=== PATIENT | male | born 1940 | race Caucasian/White ===

== ENCOUNTER 2019-02-26 13:57 | Observation (INO) | payer MEDICARE ==
[2019-02-26 14:48] LABS: ABSOLUTE NEUTROPHIL COUNT 4.46; BASO % 0.2 % (0-6); EOS % 3.5 % (0-6); HEMOGLOBIN 12.7 gm/dl (14.0-18.0); LYMPH % 17.8 % (16-45); MEAN CELL VOLUME 94.9 fl (81-97); MEAN CORPUSCULAR HEMOGLOBIN 30.9 pg (27-33); MEAN CORPUSCULAR HGB CONC 32.6 g/dl (32-36); MEAN PLATELET VOLUME 9.6 fl (7.4-10.4); MONO % 8.5 % (0-9); PLATELET COUNT 214 K/uL (130-400); RED BLOOD COUNT 4.11 M/uL (4.40-5.70); RED CELL DISTRIBUTION WIDTH 13.1 % (11.5-14.5); WHITE BLOOD COUNT W/O DIFF 6.4 K/uL (4.2-12.2)
[2019-02-26 15:08] LABS: BLOOD UREA NITROGEN 25 mg/dL (8-23); CREATININE 0.9 mg/dL (0.7-1.2); EST GLOMERULAR FILTRATION RATE > 60 mL/min; TOTAL PROTEIN 6.8 g/dL (6.6-8.7)
[2019-02-26 15:10] LABS: GLUCOSE,RANDOM 125 mg/dL (74-109)
[2019-02-26 15:13] LABS: ALB/GLOB RATIO 1.2 (1.1-1.8); ALBUMIN 3.7 g/dL (4.0-5.0); ALKALINE PHOSPHATASE 86 U/L (40-129); ALT/SGPT < 5 U/L (<41); AST/SGOT 24 U/L (10.0-50.0)
[2019-02-26 15:15] LABS: ACETAMINOPHEN < 5.0 ug/mL (10.0-30.0)
--- NOTE | 2019-02-26 15:16 | Emergency Department Record ---
History of Present Illness - General Chief Complaint: Confusion Stated Complaint: CONFUSION Time Seen by Provider: 02/26/19 14:00 Source: Patient, Family, EMS Mode of Arrival: EMS Limitations: No limitations - History of Present Illness Initial Comments: pt was brought in via ems because he was confused. he called 911 because he thought someone was in his house. he was having hallucinations and neighbors state that he is not usually confused. one of his meds was recently increased. he has parkinsons MD Complaint: Altered mental status, Confusion Onset/Timin -: Hour(s) Severity: Mild Consistency: Constant Context: Change in medication Associated Symptoms: Denies other symptoms - Camron Coma Scale Eye Response: (4) Open spontaneously Motor Response: (6) Obeys commands Verbal Response: (5) Oriented [place]ron Total: 15 - Related Data Home Medications Medication Instructions Recorded Confirmed Last Taken Atenolol [Tenormin] 25 mg PO DAILY 02/26/19 02/26/19 Unknown Carbidopa/Levodopa/Entacapone 1 each PO DAILY 02/26/19 02/26/19 Unknown [Alfnwilqf-Rsmesjsk-Damo 200 mg] Gabapentin [Neurontin] 100 mg PO TID 02/26/19 02/26/19 Unknown Terazosin HCl 2 mg PO DAILY 02/26/19 02/26/19 Unknown Allergies Allergy/AdvReac Type Severity Reaction Status Date / Time peanut AdvReac NAUSEA AND Verified 03/21/14 14:18 VOMITING Travel Screening - Travel/Exposure Within Last 30 Days Have you traveled within the last 30 days?: No Review of Systems Reviewed: No additional complaints except as noted below Constitutional: Reports: As per HPI. Denies: Chills, Fever, Malaise, Night sweats, Weakness, Weight change Eyes: Reports: As per HPI. Denies: Eye discharge, Eye pain, Photophobia, Vision change ENT: Reports: As per HPI. Denies: Congestion, Dental pain, Ear pain, Epistaxis, Hearing loss, Throat pain Respiratory: Reports: As per HPI. Denies: Cough, Dyspnea, Hemoptysis, Stridor, Wheezes Cardiovascular: Reports: As per HPI. Denies: Arrhythmia, Chest pain, Dyspnea on exertion, Edema, Murmurs, Orthopnea, Palpitations, Paroxysmal nocturnal dyspnea, Rheumatic Fever, Syncope Endocrine: Reports: As per HPI. Denies: Fatigue, Heat or cold intolerance, Polydipsia, Polyuria Gastrointestinal: Reports: As per HPI. Denies: Abdominal pain, Constipation, Diarrhea, Hematemesis, Hematochezia, Melena, Nausea, Vomiting Genitourinary: Reports: As per HPI. Denies: Dysuria, Frequency, Hematuria, Incontinence, Retention, Testicular pain, Testicular mass, Urgency Musculoskeletal: Reports: As per HPI. Denies: Arthralgia, Back pain, Gout, Joint swelling, Myalgia, Neck pain Skin: Reports: As per HPI. Denies: Bruising, Change in color, Change in hair/nails, Lesions, Pruritus, Rash Neurological: Reports: As per HPI, Abnormal gait, Confusion, Tremors. Denies: Headache, Numbness, Paresthesias, Seizure, Tingling, Vertigo, Weakness Psychiatric: Reports: As per HPI. Denies: Anxiety, Auditory hallucinations, Depression, Homicidal thoughts, Suicidal thoughts, Visual hallucinations Hematological/Lymphatic: Reports: As per HPI. Denies: Anemia, Blood Clots, Easy bleeding, Easy bruising, Swollen glands Past Medical History - SOCIAL HISTORY Smoking Status: Former smoker - RESPIRATORY Hx Respiratory Disorders: Yes Hx Sleep Apnea: Yes Hx of CPAP: No (has but does not use) - CARDIOVASCULAR Hx Cardio Disorders: Yes Hx Cardiac Cath: Yes (1969) Hx Hypertension: Yes - NEURO Hx Neuro Disorders: Yes Hx Parkinson's Disease: Yes (dx'd 2013) - GI Hx GI Disorders: Yes Hx Ulcer: Yes - Hx Genitourinary Disorders: Yes Hx Kidney Stones: Yes - ENDOCRINE Hx Endocrine Disorders: No - MUSCULOSKELETAL Hx Musculoskeletal Disorders: Yes Hx Arthritis: Yes - PSYCH Hx Psych Problems: Yes Hx Depression: Yes - HEMATOLOGY/ONCOLOGY Hx Hematology/Oncology Disorders: Yes Family Medical History Any Significant Family History?: Yes Family Hx Comment (NOT TO BE USED IN PLACE OF ITEMS BELOW): Son has Crohns disease Physical Exam - General General Appearance: Alert, Oriented x3, Cooperative, Mild distress - Head Head exam: Normal inspection - Eye Eye exam: Normal appearance, PERRL, EOMI Pupils: Normal accommodation - ENT ENT exam: Normal exam, Mucous membranes moist, Normal external ear exam, Normal orophraynx Ear exam: Normal external inspection. negative: External canal tenderness Nasal Exam: Normal inspection. negative: Discharge, Sinus tenderness Mouth exam: Normal external inspection, Tongue normal Teeth exam: Normal inspection. negative: Dental caries Throat exam: Normal inspection. negative: Tonsillar erythema, Tonsillar exudate - Neck Neck exam: Normal inspection, Full ROM. negative: Tenderness - Respiratory Respiratory exam: Normal lung sounds bilaterally. negative: Respiratory distress - Cardiovascular Cardiovascular Exam: Regular rate, Normal rhythm, Normal heart sounds - GI/Abdominal GI/Abdominal exam: Soft, Normal bowel sounds. negative: Tenderness - Rectal Rectal exam: Deferred - exam: Deferred - Extremities Extremities exam: Normal inspection, Full ROM, Normal capillary refill. negati ve: Tenderness - Back Back exam: Reports: Normal inspection, Full ROM. Denies: Muscle spasm, Rash noted, Tenderness - Neurological Neurological exam: Alert, CN II-XII intact, Oriented X3. negative: Normal gait - Psychiatric Psychiatric exam: Normal affect, Normal mood - Skin Skin exam: Dry, Intact, Normal color, Warm Course Vital Signs 02/26/19 13:58 Pulse Rate 61 Respiratory 20 Rate Blood Pressure 132/61 Pulse Ox 100 - Reevaluation(s) Reevaluation #1: 02/26/19 16:37 pts son went and checked meds and found that his dad had taken 3 extra days of meds Medical Decision Making - Lab Data Result diagrams: 02/26/19 13:30 02/26/19 13:30 Lab Results 02/26/19 02/26/19 Range/Units 13:30 13:30 WBC 6.4 (4.2-12.2) K/uL RBC 4.11 L (4.40-5.70) M/uL Hgb 12.7 L (14.0-18.0) gm/dl Hct 39.0 L (42.0-52.0) % MCV 94.9 (81-97) fl MCH 30.9 (27-33) pg MCHC 32.6 (32-36) g/dl RDW 13.1 (11.5-14.5) % Plt Count 214 (130-400) K/uL MPV 9.6 (7.4-10.4) fl Gran % 70.0 (47-80) % Lymphocytes % 17.8 (16-45) % Monocytes % 8.5 (0-9) % Eosinophils % 3.5 (0-6) % Basophils % 0.2 (0-6) % Absolute Neutrophils 4.46 Sodium 140 (136-145) mmol/L Potassium 3.5 (3.4-4.5) mmol/L Chloride 102 (98-107) mmol/L Carbon Dioxide 27.0 (22-29) mmol/L Anion Gap 11.0 (7-16) BUN 25 H (8-23) mg/dL Creatinine 0.9 (0.7-1.2) mg/dL Estimated GFR > 60 mL/min Random Glucose 125 H (74-109) mg/dL Calcium 9.4 (8.8-10.2) mg/dL Total Bilirubin 0.40 (0.2-1.0) mg/dL Total Protein 6.8 (6.6-8.7) g/dL Disposition Disposition: Admit Clinical Impression: Confusion Overdose Qualifiers: Encounter type: initial encounter Injury intent: accidental or unintentional Qualified Code(s): T50.901A - Poisoning by unspecified drugs, medicaments and biological substances, accidental (unintentional), initial encounter Disposition: Still a Patient at [facility] Decision to Admit: Admit from ER Decision to Admit Date: 02/26/19 Decision to Admit Time: 16:39 Forms: Patient Portal Access Quality - Quality Measures Quality Measures: N/A - Blood Pressure Screening Does Patient Have Any of the Following: Active Dx of HTN Blood Pressure Classification: Pre-Hypertensive BP Reading Systolic Measurement: 132 Diastolic Measurement: 61 Screening for High Blood Pressure: Patient Exclusion, Hx of HTN [[id number]]
[2019-02-26 16:18] LABS: URINE APPEARANCE CLEAR; URINE BILIRUBIN NEGATIVE (NEGATIVE); URINE BLOOD NEGATIVE (NEGATIVE); URINE COLOR ORANGE; URINE GLUCOSE (UA) NEGATIVE (NEGATIVE); URINE KETONE TRACE (NEGATIVE); URINE LEUKOCYTE ESTERASE NEGATIVE (NEGATIVE); URINE NITRITE NEGATIVE (NEGATIVE); URINE PROTEIN NEGATIVE (NEGATIVE); URINE UROBILINOGEN 0.2 E.U./dL (0.20 - 1.00)
[2019-02-26 16:25] LABS: AMPHETAMINE SCREEN URINE NOT DETECTED; BARBITURATE SCREEN URINE NOT DETECTED; BENZODIAZEPINE SCREEN URINE NOT DETECTED; COCAINE SCREEN URINE NOT DETECTED; METHADONE SCREEN URINE NOT DETECTED; OPIATE SCREEN URINE NOT DETECTED; PHENCYCLIDINE SCREEN URINE NOT DETECTED; THC SCREEN URINE NOT DETECTED; TRICYCLIC ANTIDEPRESSANT SCRN NOT DETECTED
[2019-02-26 16:26] LABS: METHAMPHETAMINE SCREEN NOT DETECTED; OXYCODONE SCREEN URINE NOT DETECTED; PROPOXYPHENE SCREEN URINE NOT DETECTED
[2019-02-26] MEDS ORDERED: 0.9 % SODIUM CHLORIDE 1,000 ML BAG IV ONE (16:27)
[2019-02-27] MEDS: ACETAMINOPHEN 500 MG TABLET PO PRN ×2 (00:23→09:46)
[2019-02-27] MEDS ORDERED: ATENOLOL 25 MG TABLET PO SCH (10:00)
--- NOTE | 2019-02-27 12:25 | History & Physical ---
History of Present Illness - Date of Service Date of Service for History & Physical: 02/27/19 - History of Present Illness Admitting Diagnosis: overdose, confusion History of Present Illness: 78 year old male patient presented to ED via EMS for evaluation of acute onset confusion. Patient lives alone and called 911 due to feeling that someone was in his home. Patient reported having visual hallucinations as well, denies a history of confusion at baseline. Patient states he recently saw PCP and his Carbodopa/Levodopa was increased. Upon further investigation from sons, it was found that patient had taken 4 days worth of all medications over the course of one day. Patient's current medications include Gabapentin 100mg daily, Duloxatine 30mg daily, Atenolol 25mg daily, Vit D2 1.25mg weekly, Terazosin 2mg qhs, and Carbodopa/Levodopa ER 50/200 1 tab at 0700, 1200, 1700, 2200. Past medical history includes HTN, Parkinson's, and Depression. PCP: Dr. Perry ED Course: HR 61, RR 20, BP 132/61, Pulse ox 100% CBC, CMP unremarkable UA: trace ketones Urine drug screen negative Head CT: no acute changes 02/27/19: Patient alert and oriented to self, place and situation. Tremors and confusion have improved from yesterday, patient still reports feeling "cloudy". Son at bedside, reports patient is near baseline for tremors. States he has n oted a decline in patient's mentation over the past 2-4 months. Patient currently lives home alone, sons help organize medications. Patient has no complaints of pain, nausea, shortness of breath, chest pain, or diarrhea today. Travel Screening - Travel/Exposure Within Last 30 Days Have you traveled within the last 30 days?: No - Travel/Exposure Within Last Year Have you traveled outside the [place] in the last year?: No - Additonal Travel Details Have you been exposed to anyone with a communicable illness?: No - Travel Symptoms Symptom Screening: None Review of Systems Reviewed: No additional complaints except as noted below Constitutional: Reports: As per HPI. Denies: Chills, Fever, Malaise, Night sweats, Weakness, Weight change Eyes: Reports: As per HPI. Denies: Eye discharge, Eye pain, Photophobia, Vision change ENT: Reports: As per HPI. Denies: Congestion, Dental pain, Ear pain, Epistaxis, Hearing loss, Throat pain Respiratory: Reports: As per HPI. Denies: Cough, Dyspnea, Hemoptysis, Stridor, Wheezes Cardiovascular: Reports: As per HPI. Denies: Arrhythmia, Chest pain, Dyspnea on exertion, Edema, Murmurs, Orthopnea, Palpitations, Paroxysmal nocturnal dyspnea, Rheumatic Fever, Syncope Endocrine: Reports: As per HPI. Denies: Fatigue, Heat or cold intolerance, Polydipsia, Polyuria Gastrointestinal: Reports: As per HPI. Denies: Abdominal pain, Constipation, Diarrhea, Hematemesis, Hematochezia, Melena, Nausea, Vomiting Genitourinary: Reports: As per HPI. Denies: Dysuria, Frequency, Hematuria, Incontinence, Retention, Testicular pain, Testicular mass, Urgency Musculoskeletal: Reports: As per HPI. Denies: Arthralgia, Back pain, Gout, Joint swelling, Myalgia, Neck pain Skin: Reports: As per HPI. Denies: Bruising, Change in color, Change in hair/nails, Lesions, Pruritus, Rash Neurological: Reports: As per HPI, Abnormal gait, Confusion, Tremors. Denies: Headache, Numbness, Paresthesias, Seizure, Tingling, Vertigo, Weakness Psychiatric: Reports: As per HPI. Denies: Anxiety, Auditory hallucinations, Depression, Homicidal thoughts, Suicidal thoughts, Visual hallucinations Hematological/Lymphatic: Reports: As per HPI. Denies: Anemia, Blood Clots, Easy bleeding, Easy bruising, Swollen glands Past Medical History - SOCIAL HISTORY Smoking Status: Former smoker Alcohol Use: None Drug Use: None - RESPIRATORY Hx Respiratory Disorders: Yes Hx Sleep Apnea: Yes Hx of CPAP: No (has but does not use) - CARDIOVASCULAR Hx Cardio Disorders: Yes Hx Cardiac Cath: Yes (1969) Hx Hypertension: Yes - NEURO Hx Neuro Disorders: Yes Hx Parkinson's Disease: Yes (dx'd 2013) - GI Hx GI Disorders: Yes Hx Ulcer: Yes - Hx Genitourinary Disorders: Yes Hx Kidney Stones: Yes - ENDOCRINE Hx Endocrine Disorders: No Hx Diabetes: No Hx Thyroid Disease: No - MUSCULOSKELETAL Hx Musculoskeletal Disorders: Yes Hx Arthritis: Yes - PSYCH Hx Psych Problems: Yes Hx Depression: Yes - HEMATOLOGY/ONCOLOGY Hx Hematology/Oncology Disorders: No Family Medical History Any Significant Family History?: Yes Family Hx Comment (NOT TO BE USED IN PLACE OF ITEMS BELOW): Son has Crohns disease H&P Meds/Allergies - Allergies Allergies: Allergies Allergy/AdvReac Type Severity Reaction Status Date / Time peanut AdvReac NAUSEA AND Verified 03/21/14 14:18 VOMITING - Home Medications Home Medications Medication Instructions Recorded Confirmed Last Taken Atenolol [Tenormin] 25 mg PO DAILY 02/26/19 02/26/19 Unknown Carbidopa/Levodopa/Entacapone 1 each PO DAILY 02/26/19 02/26/19 Unknown [Irvlnxqkv-Jirgvxfp-Mvgi 200 mg] Gabapentin [Neurontin] 100 mg PO TID 02/26/19 02/26/19 Unknown Terazosin HCl 2 mg PO DAILY 02/26/19 02/26/19 Unknown - Active Medications Active Medications: Current Medications Acetaminophen (Tylenol 500mg Tab) 1,000 mg PO Q6H PRN PRN Reason: PAIN - MILD(1-4)/FEVER Last Admin: 02/27/19 09:46 Dose: 1,000 mg Documented by: Atenolol (Tenormin) 25 mg PO DAILY TALHA Last Admin: 02/27/19 09:46 Dose: 25 mg Documented by: Physical Exam - Vital Signs Vital Signs: Vital Signs - Last 24 Hrs Temp Pulse Pulse Pulse Pulse Resp BP 02/27/19 09:00 84 16 02/27/19 08:06 98.0 F 84 16 02/27/19 06:30 97.4 F L 82 18 02/26/19 21:56 99.1 F 86 18 02/26/19 19:08 83 16 02/26/19 18:00 97.9 F 83 16 02/26/19 16:19 67 18 02/26/19 13:58 61 20 132/61 BP BP Pulse Ox 02/27/19 09:00 02/27/19 08:06 192/99 94 L 02/27/19 06:30 193/78 95 02/26/19 21:56 159/87 96 02/26/19 19:08 02/26/19 18:00 179/83 100 02/26/19 16:19 166/75 98 02/26/19 13:58 100 - General General Appearance: Alert, Oriented x3 (not to time), Cooperative, No acute distress Limitations: No limitations - Head Head exam: Normal inspection - Eye Eye exam: Normal appearance, PERRL, EOMI Pupils: Normal accommodation - ENT ENT exam: Normal exam, Mucous membranes moist, Normal external ear exam, Normal orophraynx Ear exam: Normal external inspection. negative: External canal tenderness Nasal Exam: Normal inspection. negative: Discharge, Sinus tenderness Mouth exam: Normal external inspection, Tongue normal Teeth exam: Normal inspection. negative: Dental caries Throat exam: Normal inspection. negative: Tonsillar erythema, Tonsillar exudate - Neck Neck exam: Normal inspection, Full ROM. negative: Tenderness - Respiratory Respiratory exam: Normal lung sounds bilaterally. negative: Respiratory distress - Cardiovascular Cardiovascular Exam: Regular rate, Normal rhythm, Normal heart sounds Peripheral Pulses: 2+: Radial (R), Radial (L), Dorsalis Pedis (R), Dorsalis Pedis (L) - GI/Abdominal GI/Abdominal exam: Soft, Normal bowel sounds. negative: Tenderness - Rectal Rectal exam: Deferred - exam: Deferred - Extremities Extremities exam: Normal inspection, Full ROM, Normal capillary refill. negative: Tenderness - Back Back exam: Reports: Normal inspection, Full ROM. Denies: Muscle spasm, Rash noted, Tenderness - Neurological Neurological exam: Abnormal gait (shuffling), Alert, Oriented X3, Other (tremors). negative: Normal gait - Psychiatric Psychiatric exam: Normal affect, Normal mood - Skin Skin exam: Dry, Intact, Normal color, Warm Results - Labs Result Diagrams: 02/26/19 13:30 02/26/19 13:30 Labs Last 24 Hours: Laboratory Results - last 24 hr 02/26/19 02/26/19 02/26/19 13:30 13:30 Unknown WBC 6.4 RBC 4.11 L Hgb 12.7 L Hct 39.0 L MCV 94.9 MCH 30.9 MCHC 32.6 RDW 13.1 Plt Count 214 MPV 9.6 Gran % 70.0 Lymphocytes % 17.8 Monocytes % 8.5 Eosinophils % 3.5 Basophils % 0.2 Absolute Neutrophils 4.46 Sodium 140 Potassium 3.5 Chloride 102 Carbon Dioxide 27.0 Anion Gap 11.0 BUN 25 H Creatinine 0.9 Estimated GFR > 60 Random Glucose 125 H Calcium 9.4 Total Bilirubin 0.40 AST 24 ALT < 5 Alkaline Phosphatase 86 Total Protein 6.8 Albumin 3.7 L Globulin 3.1 Albumin/Globulin Ratio 1.2 Urine Color [place] H Urine Appearance Clear Urine pH 5.5 Ur Specific [place] >= 1.030 Urine Protein Negative Urine Glucose (UA) Negative Urine Ketones Trace H Urine Blood Negative Urine Nitrite Negative Urine Bilirubin Negative Urine Urobilinogen 0.2 Ur Leukocyte Esterase Negative Urine Opiates Screen Ur Oxycodone Screen Urine Methadone Screen Ur Propoxyphene Screen Acetaminophen < 5.0 L Ur Barbituates Screen Ur Tricyclics Screen Ur Phencyclidine Scrn Ur Amphetamine Screen U Methamphetamines Scrn U Benzodiazepines Scrn Urine Cocaine Screen Urine Cannabis Screen 02/26/19 Unknown WBC RBC Hgb Hct MCV MCH MCHC RDW Plt Count MPV Gran % Lymphocytes % Monocytes % Eosinophils % Basophils % Absolute Neutrophils Sodium Potassium Chloride Carbon Dioxide Anion Gap BUN Creatinine Estimated GFR Random Glucose Calcium Total Bilirubin AST ALT Alkaline Phosphatase Total Protein Albumin Globulin Albumin/Globulin Ratio Urine Color Urine Appearance Urine pH Ur Specific [place] Urine Protein Urine Glucose (UA) Urine Ketones Urine Blood Urine Nitrite Urine Bilirubin Urine Urobilinogen Ur Leukocyte Esterase Urine Opiates Screen Not detected Ur Oxycodone Screen Not detected Urine Methadone Screen Not detected Ur Propoxyphene Screen Not detected Acetaminophen Ur Barbituates Screen Not detected Ur Tricyclics Screen Not detected Ur Phencyclidine Scrn Not detected Ur Amphetamine Screen Not detected U Methamphetamines Scrn Not detected U Benzodiazepines Scrn Not detected Urine Cocaine Screen Not detected Urine Cannabis Screen Not detected VTE H&P Assessment - Risk for VTE Risk for VTE: Yes Risk Level: Moderate Risk Assessment Date: 02/27/19 Risk Assessment Time: 12:26 VTE Orders Placed or Will Be Placed: Yes Plan - Detailed Diagnosis and Plan (1) Confusion Current Visit: Yes Status: Acute Base Code: R41.0 - DISORIENTATION, UNSPECIFIED Comment: 02/27/19: -Acute confusion noted from baseline -Oriented to self, place, and situation today -Head CT: no acute changes -UA, CBC, and CMP unremarkable -Confusion likely due to overdose of Carbedopa/Levodopa (2) Overdose Current Visit: Yes Status: Acute Qualifiers: Encounter type: initial encounter Injury intent: accidental or unintentional Qualified Code(s): T50.901A - Poisoning by unspecified drugs, medicaments and biological substances, accidental (unintentional), initial encounter Base Code: T50.901A - POISONING BY UNSP DRUG/MEDS/BIOL SUBST, ACCIDENTAL, INIT Comment: 02/27/19: -Patient has take 3-4 days worth of medications on Thursday -Holding Duloxatine and Carbodopa/Levodopa until 02/28 (3) DVT prophylaxis Current Visit: Yes Status: Acute Base Code: Z29.9 - ENCOUNTER FOR PROPHYLACTIC MEASURES, UNSPECIFIED Comment: 02/27/19: -High risk due to age and hospitalization -Encouraged ambulation within the room -Lovenox 40mg SQ daily (4) DNR (do not resuscitate) Current Visit: Yes Status: Acute Base Code: Z66 - DO NOT RESUSCITATE Comment: 02/27/19: -Patient DNR
--- NOTE | 2019-02-27 12:47 | CT SCAN REPORT ---
DATE: 02/26/2019. EXAM: CT SCAN OF THE HEAD. HISTORY: THE PATIENT HAS A HISTORY OF CONFUSION AND A FALL. TECHNIQUE: Serial axial CT scan of the head was performed at 2.5 mm intervals from the base of the skull to the apex without the use of intravenous contrast. Sagittal and coronal reconstruction views were provided. COMPARISON: No comparison CTs are available. FINDINGS: The ventricles, cisterns, and sulci are within normal limits for size, shape, and attenuation. There is no mass or mass effect. There are mild to moderate periventricular and subcortical white matter chronic small-vessel ischemic changes. There is no CT evidence of intra- or extra-axial fluid collection to suggest bleeding. Bone windows demonstrate no CT evidence of a fracture or dislocation of the skull. The paranasal sinuses are unremarkable. IMPRESSION: A MILD AMOUNT OF PERIVENTRICULAR AND SUBCORTICAL WHITE MATTER CHRONIC SMALL- VESSEL ISCHEMIC CHANGES IS IDENTIFIED WITHOUT CT EVIDENCE OF AN ACUTE INTRACRANIAL PROCESS. Job Number: [id number] MTDD
[2019-02-27] MEDS: GABAPENTIN 100 MG CAPSULE PO SCH (21:25)
[2019-02-27] MEDS: ATENOLOL 25 MG TABLET PO SCH (21:25)
[2019-02-27] MEDS: TERAZOSIN HCL 1 MG CAPSULE PO SCH (21:25)
[2019-02-27] MEDS ORDERED: NYSTATIN 15 GM POWDER TP ONE (21:32)
[2019-02-28] MEDS: CARBIDOPA/LEVODOPA 25MG/100MG TABLET PO SCH ×5 (06:22→22:18)
[2019-02-28] MEDS: ATENOLOL 25 MG TABLET PO SCH ×2 (09:27→22:17)
[2019-02-28] MEDS: DULOXETINE HCL 30 MG CAPSULE.DR PO SCH (09:27)
[2019-02-28] MEDS: ENOXAPARIN 40 MG/0.4 ML SYR SQ SCH (09:27)
[2019-02-28] MEDS ORDERED: NYSTATIN 15 GM POWDER TP PRN (09:41)
--- NOTE | 2019-02-28 12:46 | Rehab Evaluation ---
Patient Information - Patient Information Diagnosis: overdose, confusion Ordered Treatment: OT Evaluate and Treat Status: Initial Evaluation Surgery: No Past Medical/Surgical Hx: PAST MEDICAL/SURGICAL HISTORY Past Surgical History bilat hernia repair, heart cath (), colonoscopy PMH - Respiratory Hx Respiratory Disorders Yes Hx Sleep Apnea Yes Hx of CPAP No: has but does not use PMH - Cardiovascular Hx Cardiovascular Disorders Yes Hx Cardiac Catheterization Yes: 1970 Hx Hypertension Yes PMH - Neuro Hx Neurological Disorders Yes Hx Parkinson's Disease Yes: dx'd 2013 PMH - GI Hx Gastrointestinal Disorders Yes Hx Ulcer Yes PMH - Hx Genitourinary Disorders Yes Hx Kidney Stones Yes PMH - Endocrine Hx Endocrine Disorders No Hx Diabetes No Hx Thyroid Disease No PMH - Musculoskeletal Hx Musculoskeletal Disorders Yes Hx Arthritis Yes PMH - Psych Hx Psychiatric Problems Yes Hx Depression Yes PMH - Hematology/Oncology Hx Hematology/Oncology No Disorders Premorbid Status: Detail (Pt lives alone in a 1 story house, no basement. He has 2 steps with 1 railing at the entrance. He has a tub/shower combination, no grab bar. He does have a tub bench but he typically stands to shower. He has a standard height toilet, no grab bar. He was Ind with all self cares, home mgmt, meal prep and laundry tasks. He has a 2 wheeled walker but was ambulating without an assistive device.) Social History: Detail (Supportive son who was present for evaluation.) Precautions: [place], Fall - Time With Patient Total Time Spent With Patient (Min): 40 Treatment Procedures: Detail (OT eval low complexity) Subjective Information - Subjective Information Per Patient Objective Data - Pain Pain Present: No - Mental Status Patient Orientation: Oriented x3 (Pt oriented to self, location, month, year and birthday. He stated his age as "88". Pt required minimal verbal cueing at times.) - Visual Perception Appears within normal limits for therapeutic activities (Pt wears glasses at all times.) - ROM Within normal limits (Vivek UE AROM WNL) - Strength/Tone Within normal limits (Vivek UE strength 4+/5 throughout) - Coordination Deficit (Pt presents with significant UE tremors, right worse than left.) - Transfers Needs Assist (Min assist and verbal cues for sit to stand from recliner chair and toilet heights.) - Balance Balance Sitting: Good Balance Standing: Fair - Sensation Intact - Gait Detail (Pt ambulated in room with 2 wheeled walker and CG assist.) - ADL's/IADL's Detail (Pt able to don hospital pants with mod assist to start over feet and max assist to cloth covered helmet puller hips and tie. He was able to complete toileting with min assist for sit to stand and to reach toilet paper. He completed oral hygiene with min assist to close toothpaste due to significant tremors. Pt was fatigued after self care tasks.) Therapy Assessment - Therapy Assessment Detail (Pt presents with significant vivek UE tremors, decreased Ind with self care tasks and decreased endurance needed for safe and Ind ADLs/IADLs.) Problem List - Problem List Occupational Therapy Problem List: Detail (1. Decreased UE coordination due to significant tremors. 2. Decreased endurance needed for safe and Ind self cares and IADLs. 3. Decreased Ind with self care tasks.) Goals - Goals Occupational Therapy Goals: 1. Pt will demonstrate functional UE coordination to allow Ind with self cares and IADL tasks. 2. Pt will demonstrate improved endurance to allow Ind with light meal prep activities. 3. Pt will be safe and Ind with total body dressing, grooming and hygiene tasks. Prognosis - Prognosis Good Plan - Plan Occupational Therapy Plan: OT 2-4 days per week to address self cares, IADLs, UE function and overall endurance. Recommend short IP rehab stay to maximize safety and Ind to allow return home.
--- NOTE | 2019-02-28 12:47 | Rehab Evaluation ---
Patient Information - Patient Information Diagnosis: confusion Ordered Treatment: PT Evaluate and Treat Status: Initial Evaluation History: Detail (Patient presented in ED on 02/26/19 due to increased confusion and hallucinations. Patient's son discovered patient had taken 3 extra days of medications.) Past Medical/Surgical Hx: PAST MEDICAL/SURGICAL HISTORY Past Surgical History bilat hernia repair, heart cath (), colonoscopy PMH - Respiratory Hx Respiratory Disorders Yes Hx Sleep Apnea Yes Hx of CPAP No: has but does not use PMH - Cardiovascular Hx Cardiovascular Disorders Yes Hx Cardiac Catheterization Yes: 1969 Hx Hypertension Yes PMH - Neuro Hx Neurological Disorders Yes Hx Parkinson's Disease Yes: dx'd 2013 PMH - GI Hx Gastrointestinal Disorders Yes Hx Ulcer Yes PMH - Hx Genitourinary Disorders Yes Hx Kidney Stones Yes PMH - Endocrine Hx Endocrine Disorders No Hx Diabetes No Hx Thyroid Disease No PMH - Musculoskeletal Hx Musculoskeletal Disorders Yes Hx Arthritis Yes PMH - Psych Hx Psychiatric Problems Yes Hx Depression Yes PMH - Hematology/Oncology Hx Hematology/Oncology No Disorders Premorbid Status: Detail (Prior to admission the patient was ambulatory without device. The patient stated he was independent with ADL's, laundry, household tasks, meals. The patient had assistance with driving and lawn care.) Social History: Detail (The patient lives alone in a one story house with 2 steps at the enterance and one handrail. The bathroom is equipped with : tub/shower combination, shower seat, standard height toilet. There were no grab bars in bathroom. The patient has a front wheeled walker.) Precautions: [place], Fall - Time With Patient Total Time Spent With Patient (Min): 30 Treatment Procedures: Detail (Initial Evaluation. Low complexity.) Subjective Information - Subjective Information Per Patient (The patient had no pain complaints but did state his UE tremoring was increased.) Objective Data - Mental Status Patient Orientation: Oriented x3 (The patient knew his birthdate, current year and month but not his age.) - ROM Not within normal limits (The patient's R knee extension was minimally limited in AROM. PROM was WNL. All other AROM was WNL.) - Strength/Tone Not within normal limits (The patient's strength was influenced by increased muscle tone in LE's and trunk, however isolated movements were present. Using the William's scale LE tone was rated as 3 ( considerable increase in tone;passive movement difficult). R LE tone was slightly increased compared to L. Trunk tone was level 4 on William's (Limb rigid in Trunk flexion).) - Bed Mobility Needs Assist (Not evaluated.) - Transfers Needs Assist (Minimal PA of 1 with sit to stand, verbal cues to push up from chair and CG with stand to sit with verbal cues to reach back to chair. Toilet transfer was completed independently with grab bar and verbal cues for technique.) - Balance Balance Standing: Fair (Functional patient was able to stand with one handed support and complete ADL's. Patient's balance was not assessed using Objective Balance Tool.) - Gait Detail (The patient ambulated with CG of 1 using front wheeled walker a distance of 55 feet x 1. The gait pattern was charecterized by initially shuffling gait pattern with increased R hip adduction during swing phase. Stride length increased as activity progressed and R hip adduction decreased. Flexed posturing of neck and trunk was noted throughout gait as well as hand tremoring. The patient did not have heel to toe rate transfer.) Therapy Assessment - Therapy Assessment Detail (The patient required assistance and verbal cueing for transfers and CG for ambulation. Feel the patient would benefit from subacute rehab to return to previous functional level which was living alone without assistance.) Problem List - Problem List Physical Therapy Problem List: Detail (1) Assistance with transfers 2) Decreased ability to complete prolonged physical activity 3) Increased tone of LE's and Trunk 4) Decreased LE and Trunk ROM due to increased 5) Numerous gait deviations increasing fall risk) Goals - Goals Physical Therapy Goals: 1) The patient will ambulate 75 to 100 feet with appropriate assistive independently. 2) Evaluate bed mobility. 3)Evaluate balance using objective balance test. 4) The patient will ambulate on stairs with use of one railing with supervision for safety. 5) Independent with transfers. Plan - Plan Physical Therapy Plan: PT 1-2 times a day for gait and transfer training, neuromuscular re-education, balance exercises, bed mobility,tone reduction techniques, manual therapy techniques to improve trunk mobility.
--- NOTE | 2019-02-28 17:12 | Physician Progress Note ---
Subjective - Date Date of Physician Progress Note: 02/28/19 - Subjective Subjective Comment: 02/28/19: Patient oriented x 3, back to baseline mentation at this time. Tremors have also improved and patient reports being to baseline. PT/OT to evaluate due to continued weakness and deconditioning. Case management to help with discharge planning. Objective - Vital Signs Vital Signs: Vital Signs - Last 24 Hrs Temp Pulse Resp BP BP Pulse Ox 02/28/19 13:55 97.8 F 73 16 130/49 95 02/28/19 08:09 20 02/28/19 08:00 98.2 F 84 16 155/68 94 L 02/28/19 05:57 97.7 F 83 16 173/87 97 02/28/19 02:00 98.1 F 76 16 187/85 97 02/27/19 21:00 16 02/27/19 20:00 98.2 F 82 16 185/92 97 - General General Appearance: Alert, Oriented x3 (not to time, at baseline), Cooperative, No acute distress Limitations: No limitations - Head Head exam: Normal inspection - Eye Eye exam: Normal appearance, PERRL, EOMI Pupils: Normal accommodation - ENT ENT exam: Normal exam, Mucous membranes moist Ear exam: Normal external inspection. negative: External canal tenderness Nasal Exam: Normal inspection. negative: Discharge, Sinus tenderness Mouth exam: Normal external inspection Teeth exam: Normal inspection. negative: Dental caries Throat exam: Normal inspection. negative: Tonsillar erythema, Tonsillar exudate - Neck Neck exam: Normal inspection, Full ROM. negative: Tenderness - Respiratory Respiratory exam: Normal lung sounds bilaterally. negative: Respiratory distress - Cardiovascular Cardiovascular Exam: Regular rate, Normal rhythm, Normal heart sounds Peripheral Pulses: 2+: Radial (R), Radial (L), Dorsalis Pedis (R), Dorsalis Pedis (L) - GI/Abdominal GI/Abdominal exam: Soft, Normal bowel sounds. negative: Tenderness - Rectal Rectal exam: Deferred - exam: Deferred - Extremities Extremities exam: Normal inspection, Full ROM, Normal capillary refill. negative: Tenderness - Back Back exam: Reports: Normal inspection, Full ROM. Denies: Muscle spasm, Rash noted, Tenderness - Neurological Neurological exam: Abnormal gait (shuffling), Alert, Oriented X3, Other (tremors). negative: Normal gait - Psychiatric Psychiatric exam: Normal affect, Normal mood - Skin Skin exam: Dry, Intact, Normal color, Warm Assessment and Plan - Assessment and Plan (1) Confusion Current Visit: Yes Status: Acute Base Code: R41.0 - DISORIENTATION, UNSPECIFIED Comment: 02/28/19: -Head CT: no acute changes -UA, CBC, and CMP unremarkable -Confusion likely due to overdose of Carbedopa/Levodopa -Patient's confusion has resolved. Oriented to baseline mentation (2) Overdose Current Visit: Yes Status: Acute Qualifiers: Encounter type: initial encounter Injury intent: accidental or unintentional Qualified Code(s): T50.901A - Poisoning by unspecified drugs, medicaments and biological substances, accidental (unintentional), initial en counter Base Code: T50.901A - POISONING BY UNSP DRUG/MEDS/BIOL SUBST, ACCIDENTAL, INIT Comment: 02/28/19: -Familiy reports that patient took 3-4 days worth of all medications on Thursday -Holding Duloxatine and Carbodopa/Levodopa until 02/28 (3) Parkinson disease Current Visit: Yes Status: Acute Base Code: G20 - PARKINSON'S DISEASE Co mment: 02/28/19: -Progressing parkinson's with progressively worsening tremors -Sinemet increased by PCP recently -Taking Sinemet 50/200 QID (4) Physical deconditioning Current Visit: Yes Status: Acute Base Code: R53.81 - OTHER MALAISE Comment: 02/28/19: -Patient requiring assist up to bathroom, out of bed, and with ambulation in halls -Uses walker, lives home alone -PT/OT to evaluate -Will likely need PT/OT on dc (5) Hypertension Current Visit: Yes Status: Acute Base Code: I10 - ESSENTIAL (PRIMARY) HYPERTENSION Comment: 02/28/19: -History of HTN, currently taking Atenolol 25mg daily -Increased Atenolol to 25mg BID due to continued hypertensive readings (6) DVT prophylaxis Current Visit: Yes Status: Acute Base Code: Z29.9 - ENCOUNTER FOR P ROPHYLACTIC MEASURES, UNSPECIFIED Comment: 02/28/19: -High risk due to age and hospitalization -Encouraged ambulation within the room -Lovenox 40mg SQ daily (7) DNR (do not resuscitate) Current Visit: Yes Status: Acute Base Code: Z66 - DO NOT RESUSCITATE Comment: 02/28/19: -Patient DNR Results - Labs Result Diagrams: 02/26/19 13:30 02/26/19 13:30 DVT/PE Assessment - Risk for VTE Risk for VTE: No Risk Level: Moderate Risk Assessment Date: 02/27/19 Risk Assessment Time: 12:26 VTE Orders Placed or Will Be Placed: Yes - Active Medicaitons Current Medications: Current Medications Acetaminophen (Tylenol 500mg Tab) 1,000 mg PO Q6H PRN PRN Reason: PAIN - MILD(1-4)/FEVER Last Admin: 02/27/19 09:46 Dose: 1,000 mg Documented by: Atenolol (Tenormin) 25 mg PO BID [facility] Last Admin: 02/28/19 09:27 Dose: 25 mg Documented by: Carbidopa/Levodopa (Sinemet) 2 each PO QIDACHS [facility] Last Admin: 02/28/19 17:10 Dose: 2 each Documented by: Duloxetine HCl (Cymbalta) 30 mg PO DAILY [facility] Last Admin: 02/28/19 09:27 Dose: 30 mg Documented by: Enoxaparin Sodium (Lovenox) 40 mg SQ DAILY [facility] Last Admin: 02/28/19 09:27 Dose: 40 mg Documented by: Gabapentin (Neurontin) 100 mg PO QHS [facility] Last Admin: 02/27/19 21:25 Dose: 100 mg Documented by: Nystatin (Nystop) 15 gm TP ASDIR PRN PRN Reason: RASH Terazosin HCl (Hytrin) 2 mg PO QHS [facility] Last Admin: 02/27/19 21:25 Dose: 2 mg Documented by: AMI Plan - Labs Result Diagrams: 02/26/19 13:30 02/26/19 13:30
[2019-02-28] MEDS: GABAPENTIN 100 MG CAPSULE PO SCH (22:17)
[2019-02-28] MEDS: TERAZOSIN HCL 1 MG CAPSULE PO SCH (22:18)
[2019-03-01] MEDS: ACETAMINOPHEN 500 MG TABLET PO PRN (05:01)
[2019-03-01 06:43] LABS: ABSOLUTE NEUTROPHIL COUNT 3.77; HEMATOCRIT 36.7 % (42.0-52.0); HEMOGLOBIN 12.3 gm/dl (14.0-18.0); MEAN CELL VOLUME 93.9 fl (81-97); MEAN CORPUSCULAR HGB CONC 33.5 g/dl (32-36); MEAN PLATELET VOLUME 9.2 fl (7.4-10.4); PLATELET COUNT 197 K/uL (130-400); RED BLOOD COUNT 3.91 M/uL (4.40-5.70); RED CELL DISTRIBUTION WIDTH 12.8 % (11.5-14.5); WHITE BLOOD COUNT W/O DIFF 5.5 K/uL (4.2-12.2)
[2019-03-01 06:48] LABS: MEAN CORPUSCULAR HEMOGLOBIN 31.4 pg (27-33)
[2019-03-01 06:49] LABS: BASO % 0.4 % (0-6); EOS % 4.9 % (0-6); GRAN % 68.6 % (47-80); LYMPH % 13.7 % (16-45); MONO % 12.4 % (0-9)
[2019-03-01 07:00] LABS: BLOOD UREA NITROGEN 18 mg/dL (8-23); CREATININE 0.7 mg/dL (0.7-1.2); EST GLOMERULAR FILTRATION RATE > 60 mL/min; GLUCOSE,RANDOM 102 mg/dL (74-109)
[2019-03-01] MEDS: CARBIDOPA/LEVODOPA 25MG/100MG TABLET PO SCH ×2 (07:21→12:52)
--- NOTE | 2019-03-01 09:12 | Discharge Summary ---
Providers Discharge Summary Date: 03/01/19 Date of admission: 02/26/19 17:26 Attending physician: SAPPHIRE ZHOU Primary care physician: Rodrick Perry Consults: Consult Orders 02/26/19 18:47 Consult - Case Management NOW Comment: Reason For Exam: discharge planning Physical Exam - Vital Signs Vital Signs: Vital Signs - Last 24 Hrs Temp Pulse Resp BP BP Pulse Ox 03/01/19 08:00 97.7 F 60 16 159/72 99 02/28/19 21:38 98.2 F 63 18 133/54 98 02/28/19 13:55 97.8 F 73 16 130/49 95 - General General Appearance: Alert, Oriented x3 (not to time, at baseline), Cooperative, No acute distress Limitations: No limitations - Head Head exam: Normal inspection - Eye Eye exam: Normal appearance, PERRL, EOMI Pupils: Normal accommodation - ENT ENT exam: Normal exam, Mucous membranes moist Ear exam: Normal external inspection. negative: External canal tenderness Nasal Exam: Normal inspection. negative: Discharge, Sinus tenderness Mouth exam: Normal external inspection Teeth exam: Normal inspection. negative: Dental caries Throat exam: Normal inspection. negative: Tonsillar erythema, Tonsillar exudate - Neck Neck exam: Normal inspection, Full ROM. negative: Tenderness - Respiratory Respiratory exam: Normal lung sounds bilaterally. negative: Respiratory distress - Cardiovascular Cardiovascular Exam: Regular rate, Normal rhythm, Normal heart sounds Peripheral Pulses: 2+: Radial (R), Radial (L), Dorsalis Pedis (R), Dorsalis Pedis (L) - GI/Abdominal GI/Abdominal exam: Soft, Normal bowel sounds. negative: Tenderness - Rectal Rectal exam: Deferred - exam: Deferred - Extremities Extremities exam: Normal inspection, Full ROM, Normal capillary refill. negative: Tenderness - Back Back exam: Reports: Normal inspection, Full ROM. Denies: Muscle spasm, Rash noted, Tenderness - Neurological Neurological exam: Abnormal gait (shuffling), Alert, Oriented X3, Other (tremors). negative: Normal gait - Psychiatric Psychiatric exam: Normal affect, Normal mood - Skin Skin exam: Dry, Intact, Normal color, Warm Hospitalization - Hospitalization Admission Diagnosis: overdose, confusion - Problem List/Discharge Diagnosis (1) Confusion Status: Acute Base Code: R41.0 - DISORIENTATION, UNSPECIFIED Comment: 03/01/19: -Head CT: no acute changes -UA, CBC, and CMP unremarkable -Confusion likely due to overdose of Carbedopa/Levodopa -Patient's confusion has resolved. Oriented to baseline mentation (2) Overdose Status: Acute Discharge Diagnosis: Encounter type: initial encounter Injury intent: accidental or unintentional Qualified Code(s): T50.901A - Poisoning by unspecified drugs, medicaments and biological substances, accidental (unintentional), initial encounter Base Code: T50.901A - POISONING BY UNSP DRUG/MEDS/BIOL SUBST, ACCIDENTAL, INIT Comment: 03/01/19: -Familiy reports that patient took 3-4 days worth of all medications on Thursday -Holding Duloxatine and Carbodopa/Levodopa until 02/28 -Continues to have physical deconditioning and weakness (3) DNR (do not resuscitate) Status: Acute Base Code: Z66 - DO NOT RESUSCITATE Comment: 03/01/19: -Patient DNR (4) DVT prophylaxis Status: Acute Base Code: Z29.9 - ENCOUNTER FOR PROPHYLACTIC MEASURES, UNSPECIFIED Comment: 03/01/19: -High risk due to age and hospitalization -Encouraged ambulation within the room -Lovenox 40mg SQ daily (5) Physical deconditioning Status: Acute Base Code: R53.81 - OTHER MALAISE Comment: 03/01/19: -Patient requiring assist up to bathroom, out of bed, and with ambulation in halls -Uses walker, lives home alone -PT/OT to evaluated. Pt to switch to Swing Bed program for further PT/OT services - Hospitalization Course Disposition: Moved to Swing Bed Hospital Course: 78 year old male patient presented to ED via EMS for evaluation of acute onset confusion. Patient lives alone and called 911 due to feeling that someone was in his home. Patient reported having visual hallucinations as well, denies a history of confusion at baseline. Patient states he recently saw PCP and his Carbodopa/Levodopa was increased. Upon further investigation from sons, it was found that patient had taken 4 days worth of all medications over the course of one day. Patient's current medications include Gabapentin 100mg daily, Duloxatine 30mg daily, Atenolol 25mg daily, Vit D2 1.25mg weekly, Terazosin 2mg qhs, and Carbodopa/Levodopa ER 50/200 1 tab at 0700, 1200, 1700, 2200. Past medical history includes HTN, Parkinson's, and Depression. PCP: Dr. Perry ED Course: HR 61, RR 20, BP 132/61, Pulse ox 100% CBC, CMP unremarkable UA: trace ketones Urine drug screen negative Head CT: no acute changes 02/27/19: Patient alert and oriented to self, place and situation. Tremors and confusion have improved from yesterday, patient still reports feeling "cloudy". Son at bedside, reports patient is near baseline for tremors. States he has noted a decline in patient's mentation over the past 2-4 months. Patient currently lives home alone, sons help organize medications. Patient has no complaints of pain, nausea, shortness of breath, chest pain, or diarrhea today. 03/01/19: VSS, labs unremarkable. Continues to have physical deconditioning. Switching patient to swing bed status. Procedures: Imaging and X-Rays 02/26/19 14:36 HEAD WO CONTRAST [CT] Stat Abnormal Labs: Abnormal Lab Results 02/26/19 02/26/19 02/26/19 Range/Units 13:30 13:30 Unknown RBC 4.11 L (4.40-5.70) M/uL Hgb 12.7 L (14.0-18.0) gm/dl Hct 39.0 L (42.0-52.0) % Lymphocytes % (16-45) % Monocytes % (0-9) % Carbon Dioxide (22-29) mmol/L BUN 25 H (8-23) mg/dL Random Glucose 125 H (74-109) mg/dL Calcium (8.8-10.2) mg/dL Albumin 3.7 L (4.0-5.0) g/dL Urine Color [place] H Urine Ketones Trace H (NEGATIVE) Acetaminophen < 5.0 L (10.0-30.0) ug/mL 03/01/19 03/01/19 Range/Units 06:18 06:18 RBC 3.91 L (4.40-5.70) M/uL Hgb 12.3 L (14.0-18.0) gm/dl Hct 36.7 L (42.0-52.0) % Lymphocytes % 13.7 L (16-45) % Monocytes % 12.4 H (0-9) % Carbon Dioxide 30.0 H (22-29) mmol/L BUN (8-23) mg/dL Random Glucose (74-109) mg/dL Calcium 8.7 L (8.8-10.2) mg/dL Albumin (4.0-5.0) g/dL Urine Color Urine Ketones (NEGATIVE) Acetaminophen (10.0-30.0) ug/mL Discharge Medications - Discharge Medications Home Medications: Ambulatory Orders Atenolol [Tenormin] 25 mg PO DAILY 02/26/19 [Last Taken Unknown] Carbidopa/Levodopa/Entacapone [Nhsjvklzp-Lfmjcadr-Xdml 200 mg] 1 each PO DAILY 02/26/19 [Last Taken Unknown] Gabapentin [Neurontin] 100 mg PO TID 02/26/19 [Last Taken Unknown] Terazosin HCl 2 mg PO DAILY 02/26/19 [Last Taken Unknown] Discharge Plan - Discharge Instructions Quality Measures - Quality Measures Quality Measures: Advance Directives, Documentation of Current Medications in Medical Record, Elder Maltreatment Screen and Follow-Up Plan, Screening for High Blood Pressure and F/U Documented - Current Medications Quality Measure: Measure #130: Documentation of Current Medications Documentation of Current Medications: <Current Medications Documented/Reviewed> [G2639] - Blood Pressure Screening Quality Measure: Screening for High Blood Pressure and Follow-Up Documented Does Patient Have Any of the Following: Active Dx of HTN Blood Pressure Classification: Pre-Hypertensive BP Reading Systolic Measurement: 132 Diastolic Measurement: 61 Screening for High Blood Pressure: Patient Exclusion, Hx of HTN [G9744] - Advance Directives Quality Measure: Measure #47: Care Plan Advance Directives Established: No Advance Directives Information Provided To Patient: No Advance Directives on File: No Living Will: Yes Power of Pbx Teacher: No Advance Care Planning: <Care Plan/Decision Maker Documented; Discussed & Documented> [[id number]] - Elder Abuse Suspicion Index Screening: Elder Abuse Suspicion Index Screening Rely on people for bathing, dressing, shopping, banking, etc: Yes Prevented from getting food, clothes, medication, etc: No Made to feel shamed or threatened by someone: No Forced to sign papers or use money against will: No Feel afraid, touched in ways not wanted or hurt physically: No Poor eye contact, withdrawn, malnourished, cuts or bruises: Yes Screening Result: Positive result, One YES response in questions 2-6. EASI Reference Information: Tali BARKLEY, Radha C, Elis D, Gabe Solorio.Development and validation of a tool to assist physicians identification of elder abuse: The Elder Abuse Suspicion Index (EASI ). Journal of Elder Abuse and Neglect, 2008; 20 (3): 276-300. - Elder Maltreatment Screen Quality Measures: Elder Maltreatment Screen and Follow-Up Plan Elder Maltreatment Screen: <Negative, No Follow-Up Plan Required> [G7336]
[2019-03-01] MEDS: ATENOLOL 25 MG TABLET PO SCH (09:46)
[2019-03-01] MEDS: ENOXAPARIN 40 MG/0.4 ML SYR SQ SCH (09:46)
[2019-03-01] MEDS: DULOXETINE HCL 30 MG CAPSULE.DR PO SCH (09:46)
== END 2019-03-01 16:06 | disposition swing bed (61) ==
LOC: ER 13:57 → MEDSURG 17:26
PROVIDERS: ADMIT Internal Medicine; ATTEND Internal Medicine
DX: R41.0 Disorientation, unspecified (principal); T50.901A Poisoning by unspecified drugs, medicaments and biological substances, accidental (unintentional), initial encounter; G20 Parkinson's disease; I10 Essential (primary) hypertension; M19.90 Unspecified osteoarthritis, unspecified site; Z87.891 Personal history of nicotine dependence; Z87.442 Personal history of urinary calculi; Z66 Do not resuscitate; R53.81 Other malaise
CPT/HCPCS: 85025; 80048; 80053; 81003; 80305; 85027; 70450; G0378 ×4; G0480; 80329; 99217; 99220; 99225; 99285; J1650; J7030

== ENCOUNTER 2019-02-28 15:59 | Inpatient (IN) | payer MEDICARE ==
[2019-03-01] MEDS ORDERED: NYSTATIN 15 GM POWDER TP PRN (10:36)
--- NOTE | 2019-03-01 10:37 | Rehab Evaluation ---
Patient Information - Patient Information Diagnosis: deconditioning due to parkinsons Ordered Treatment: OT Evaluate and Treat Status: Initial Evaluation Surgery: No Past Medical/Surgical Hx: PAST MEDICAL/SURGICAL HISTORY Past Surgical History bilat hernia repair, heart cath (), colonoscopy PMH - Respiratory Hx Respiratory Disorders Yes Hx Sleep Apnea Yes Hx of CPAP No: has but does not use PMH - Cardiovascular Hx Cardiovascular Disorders Yes Hx Cardiac Catheterization Yes: 1970 Hx Hypertension Yes PMH - Neuro Hx Neurological Disorders Yes Hx Parkinson's Disease Yes: dx'd 2013 PMH - GI Hx Gastrointestinal Disorders Yes Hx Ulcer Yes PMH - Hx Genitourinary Disorders Yes Hx Kidney Stones Yes PMH - Endocrine Hx Endocrine Disorders No Hx Diabetes No Hx Thyroid Disease No PMH - Musculoskeletal Hx Musculoskeletal Disorders Yes Hx Arthritis Yes PMH - Psych Hx Psychiatric Problems Yes Hx Depression Yes PMH - Hematology/Oncology Hx Hematology/Oncology No Disorders Premorbid Status: Detail (Pt lives alone in a 1 story house, no basement. He has 2 steps with 1 railing at the entrance. he has a tub/shower combination, no grab bar. He has a tub bench but he typically stands to shower. He has a standard height toilet, no grab bar. He was Ind with all self cares, home mgmt, meal prep and laundry tasks. He has a 2 wheeled walker but reports he was ambulating without any assistive device prior to admission.) Social History: Detail (Pt has a supportive son.) Precautions: [place], Fall - Time With Patient Total Time Spent With Patient (Min): 70 Treatment Procedures: Detail (OT eval low complexity) Subjective Information - Subjective Information Per Patient Objective Data - Pain Pain Present: Yes (Pt reports some "arthritis pain" in vivek shoulders and hips today.) - Mental Status Patient Orientation: Oriented x3 (Pt was oriented but displays slowed initiation with self care tasks.) - Visual Perception Appears within normal limits for therapeutic activities (Pt wears glasses at all times.) - ROM Within normal limits (Vivek UE AROM WNL) - Strength/Tone Within normal limits (Vivek UE strength 4+/5. Pt has significant UE tremors, right worse than left.) - Coordination Appears within normal limits for therapeutic activities (Pt demonstrates impaired coordination due to significant UE tremors.) - Bed Mobility Independent (Ind with supine to sit at EOB.) - Transfers Needs Assist (Pt requires min assist for sit to stand from EOB, toilet, shower seat and recliner heights.) - Balance Balance Sitting: Good Balance Standing: Fair - Sensation Intact - Gait Detail (Pt ambulating in room with 2 wheeled walker and CG assist x 1.) - ADL's/IADL's Detail (Pt completed toileting with assist to untie hospital pants. He was able to doff hospital pants, briefs and slipper socks with verbal cueing and extra time. He doffed gown with assist to untie. Pt completed total body shower in sitting with set up and assist to wash back, verbal cues for initiating tasks and min assist/CG for standing while washing buttocks/anju area. Pt dried self with assist for back. Pt donned gown, briefs, hospital pants and slipper socks with max assist due to fatigue. Pt able to comb hair with mod assist due to fatigue and tremors.) Therapy Assessment - Therapy Assessment Detail (Pt presents with significant UE tremors, fatigue with self care tasks, decreased Ind with ADLs and decreased Ind with functional mobility needed for ADLs/IADLs.) Problem List - Problem List Occupational Therapy Problem List: Detail (1. Decreased Ind with total body dressing. 2. Decreased Ind with showering. 3. Decreased vivek UE coordination due to tremors. 4. Decreased endurance needed for safe and Ind ADLs/IADLs.) Goals - Goals Occupational Therapy Goals: 1. Pt will be Ind with total body dressing. 2. Pt will be safe and Ind with total body showering in sitting and standing. 3. Pt will demonstrate improved UE coordination to allow Ind with ADLs/IADLs. 4. Pt will demonstrate improved endurance to allow Ind with showering/dressing tasks. Prognosis - Prognosis Good Plan - Plan Occupational Therapy Plan: OT 2-4 times per week to address UE function, overall endurance, self cares and IADLs to allow safe and Ind return home.
--- NOTE | 2019-03-01 12:46 | Rehab Evaluation ---
Patient Information - Patient Information Diagnosis: deconditioning due to parkinsons Ordered Treatment: OT Evaluate and Treat Status: Initial Evaluation Surgery: No History: Detail (Patient presented in ED on 02/26/2019 due to increased confusion and hallucinations. Patient's son discovered patient had taken 3 extra days of medications.) Past Medical/Surgical Hx: PAST MEDICAL/SURGICAL HISTORY Past Surgical History bilat hernia repair, heart cath (), colonoscopy PMH - Respiratory Hx Respiratory Disorders Yes Hx Sleep Apnea Yes Hx of CPAP No: has but does not use PMH - Cardiovascular Hx Cardiovascular Disorders Yes Hx Cardiac Catheterization Yes: 1970 Hx Hypertension Yes PMH - Neuro Hx Neurological Disorders Yes Hx Parkinson's Disease Yes: dx'd 2013 PMH - GI Hx Gastrointestinal Disorders Yes Hx Ulcer Yes PMH - Hx Genitourinary Disorders Yes Hx Kidney Stones Yes PMH - Endocrine Hx Endocrine Disorders No Hx Diabetes No Hx Thyroid Disease No PMH - Musculoskeletal Hx Musculoskeletal Disorders Yes Hx Arthritis Yes PMH - Psych Hx Psychiatric Problems Yes Hx Depression Yes PMH - Hematology/Oncology Hx Hematology/Oncology No Disorders Premorbid Status: Detail (Pt lives alone in a 1 story house, no basement. He has 2 steps with 1 railing at the entrance. he has a tub/shower combination, no grab bar. He has a tub bench but he typically stands to shower. He has a standard height toilet, no grab bar. He was Ind with all self cares, home mgmt, meal prep and laundry tasks. He has a 2 wheeled walker but reports he was ambulating without any assistive device prior to admission.) Social History: Detail (Pt has a supportive son.) Precautions: [place], Fall - Time With Patient Total Time Spent With Patient (Min): 30 Treatment Procedures: Detail Subjective Information - Subjective Information Per Patient (Patient reports today that he felt some aches and pains but received Tylenol earlier in the morning and the pain had subsided by the beginning of therapy. Patient reports that his hand tremors seem to be worse and are bothering him.) Objective Data - Mental Status Patient Orientation: Oriented x3 (Orientation was assessed during evaluation 02/28/2019 prior to admission to swing bed. Patient was able to report , date, and location. However, patient was unable to recall his age. Throughout second evaluation 03/01/2019, patient appeared to be confused and had difficulty following simple commands.) - ROM Not within normal limits (Patient's R knee extension was minimally limited in AROM; however, PROM was WNL. All other AROM was WNL.) - Strength/Tone Not within normal limits (The patient's strength was influenced by increased muscle tone in LE's and trunk; however, isolated movements were present. Using the William's scale, LE tone was rated as 3 (considerable increase in tone; passive movement difficult). R LE tone was slightly increased compared to L. Trunk tone was rated as a level 4 on the William's scale (limb rigid in trunk flexion).) - Bed Mobility Needs Assist (Not evaluated) - Transfers Needs Assist (Minimal PA of 1 with sit to stand, verbal cues to push up from chair and CG with stand to sit with verbal cues to reach back to chair. Patient required consistent verbal and tactile cueing for safety.) - Balance Balance Standing: Fair (Patient's standing balanced was assessed using the Mini BESTest of Dynamic Balance. Patient required a walker throughout test for support and SB-CG assistance for safety. Patient received a score of 0 in the sit to stand category, compensatory stepping correction for forward, backward, and right lateral assessments, changes in gait speed, ambulation with head r otation, walk with pivot turns, stepping over obstacles, and during TUG with dual task. Patient was able to perform the TUG within 1 minute and 35 seconds total. Due to the results of this test the patient was scored as a 5/28, indicating he is at a severely high risk for falls and is predicted to have a future fall within the next 6 months.) - Gait Detail (Patient ambulated with CG of 1 using front wheeled walker a distance of 40 feet 2x. Gait pattern was characterized by shuffling initially with increased R hip adduction during swing phase. Stride length increased with verbal cueing and with continued activitiy with a noticeable reduction in R hip adduction. Flexed posturing of the neck and trunk was noted throughout gait as well as hand tremoring. The patient did not have heel to toe rate transfer.) Therapy Assessment - Therapy Assessment Detail (Patient required assistance and verbal cueing for transfers and CG for ambulation. Patient required support throughout balance assessment with 2 wheeled walker and CG support x1 for safety. Patient demonstrates decreased stability in balance posteriorly and to the right. Patient also demonstrated difficulty to rotate head horizontally during ambulation. Further assessment on cognitive tasks simultaneously during ambulation would be beneficial. Patient would benefit from further subacute rehab to return to previous functional level, which was living alone without assistance.) Problem List - Problem List Physical Therapy Problem List: Detail (1. Assistance with transfers 2. Decreased ability to complete prolonged activity 3. Increased tone of LE's and trunk 4. Decreased LE and trunk ROM due to increased tone 5. Numerous gait deviations increasing fall risk 6. Decreased gait speed impacting fall risk) Occupational Therapy Problem List: Detail (1. Decreased Ind with total body dressing. 2. Decreased Ind with showering. 3. Decreased raiza UE coordination due to tremors. 4. Decreased endurance needed for safe and Ind ADLs/IADLs.) Goals - Goals Physical Therapy Goals: 1. Patient will ambulate 75-100 feet with appropriate assistive device independently. 2. Evaluate bed mobility. 3. Patient will ambulate 3 steps on stairs with use of one railing with supervision for safety. 4. Patient will independently complete transfer without verbal cueing. 5. Patient will improve score on Mini BESTest by 5 points to demonstrate a significant change of improvement due to MCID for Parkinson's Disease for the outcome measure. 6. Patient will stand on one leg for greater than 20 seconds without support or assistance to aid in strength and increased balance for function. Occupational Therapy Goals: 1. Pt will be Ind with total body dressing. 2. Pt will be safe and Ind with total body showering in sitting and standing. 3. Pt will demonstrate improved UE coordination to allow Ind with ADLs/IADLs. 4. Pt will demonstrate improved endurance to allow Ind with showering/dressing tasks. Prognosis - Prognosis Moderate (Patient did well throughout treatment session today; however, due to cognitive issues and numerous gait deviations returning home living alone is unsafe. Patient requires assistance to further progress in his prognosis.) Plan - Plan Physical Therapy Plan: PT 1-2 times a day for gait and transfer training, neuromuscular re-education, balance exercises, bed mobility, tone reduction techniques, manual therapy techniques to improve trunk mobility. Occupational Therapy Plan: OT 2-4 times per week to address UE function, overall endurance, self cares and IADLs to allow safe and Ind return home.
[2019-03-01] MEDS ORDERED: PNEUM 13-VAL/PF 0.5 ML IM ONE (18:47)
[2019-03-01] MEDS: CARBIDOPA/LEVODOPA 25MG/100MG TABLET PO SCH ×5 (19:35→22:16)
[2019-03-01] MEDS: TERAZOSIN HCL 1 MG CAPSULE PO SCH (22:16)
[2019-03-01] MEDS: ATENOLOL 25 MG TABLET PO SCH (22:16)
[2019-03-01] MEDS: GABAPENTIN 100 MG CAPSULE PO SCH (22:16)
[2019-03-02] MEDS: ACETAMINOPHEN 500 MG TABLET PO PRN (06:02)
[2019-03-02] MEDS: CARBIDOPA/LEVODOPA 25MG/100MG TABLET PO SCH ×5 (06:03→21:23)
--- NOTE | 2019-03-02 10:00 | Swing Bed Certification/Recert ---
Initial Certification Due: 03/01/19 14 Day Re-Cert Due: 03/15/19 44 Day Re-Cert Due: 04/14/19 74 Day Re-Cert Due: 05/14/19 CERTIFICATION CERTIFICATION OF PATIENT ADMISSION Required at time of admission. Due: 03/01/19 I certify that SNF services are required to be given on an inpatient basis because of the above named patient's need for senior care care on a continuing basis for the condition(s) for which he/she was receiving inpatient hospital services prior to his/her transfer to the SNF. The patient's current needs for skilled care includes: [] AUTUMN GILES, N.P. 03/02/19
--- NOTE | 2019-03-02 10:01 | History & Physical ---
History of Present Illness - Date Date of Service for History & Physical: 03/02/19 - History of Present Illness Admitting Diagnosis: deconditioning History of Present Illness: Reyes Austin is a 78 y.o. M who admits to the Swing Bed program for PT /OT and nursing services d/t deconditioning r/t recent hospitalization for accidental overdose on routine medications. PMHx includes HTN, Parkinson's and Depression. Lives home alone but has 4 sons who assist him. PCP: Dr. Perry 03/02/19 1130 Reports that he is feeling clear minded and states that he doesn't want to feel the way he did a few days ago. States that he is getting his strength back. Has some mild pain in his lower back and shoulders, pain 03/28. Tylenol has been effective. States that bowels are moving appropriately. Denies cough, SOB or nausea. General - Cognitive Patterns Speech: Normal Thought Process: Intact Thought Content: Normal Orientation: Oriented x3 Brief Interview for Mental Status Score: 11 - Communication Preferred Language?: Thai Level of Education: High School Able to Read: Yes Able to Write: Yes Select best description of speech pattern: Clear Speech Ability to express ideas and wants: Understood Understanding verbal content: Understands - Mood and Behavior Patterns Mood: Normal Attitude: Cooperative Motor Activity: Calm Affect: Appropriate Hallucinations: Denies - Patient Health Questionnaire (PHQ-9) Little interest or pleasure in doing things frequency: 2-6 days Feeling down, depressed, or hopeless frequency: 2-6 days Trouble falling/staying asleep or sleeping to much frequency: Never or 1 day Feeling tired or having little energy frequency: Never or 1 day Poor appetite or overeating frequency: Never or 1 day Feeling bad about yourself frequency: Never or 1 day Trouble concentrating on things frequency: Never or 1 day Moving/Speaking slowly or fidgety/restless frequency: Never or 1 day Thoughts that you would be better off frequency: Never or 1 day Affect of above symptoms on daily life: Somewhat difficult - Psychosocial Well-Being Usual Living Arrangement: Alone Relationship Status: / Current and Past Employment History: Retired Clubs/Organizations Belongs To: none Yazidism: Other Verbalizes Interest in Activities During Stay: No Specify Interests: has a red '[address] [employer] that he used to like to work on. Likes to watch [employer] on tv. Has a cat named Elda who he spends time with. Reports being lonely living at home. Personality: Introverted States they do not want to participate in group activities: No Patient Involved in the Community: No Patient Drives: No Patients Leisure Activities Prior to Admission: tv, spend time with cat, go out with family on occasion - Physical Functioning Assistive Devices: 2 Wheel Walker Ambulation Ability: Needs Assist Bathing Ability: Independent Dressing Ability: Independent Eating (Feeding) Ability: Independent Toileting Ability: Independent Administer Own Medication: Needs Assist - Nutrition Screening Poor oral intake > 1 week: Yes Unplanned weight loss in specified time frame: No Nutrition Support via tube feedings or parenteral nutrition: No Pressure Ulcer: No Significantly underweight define as BMI <18.5 kg/m2: No Albumin <2.5mg/dL: No Persistent nausea/vomiting/diarrhea >3 days: No Difficulty chewing/swallowing/mouth sores: No Admitting Diagnosis: No Nutrition Risk Score: High Risk Review of Systems Reviewed: No additional complaints except as noted below Musculoskeletal: Reports: Back pain Past Medical History - SOCIAL HISTORY Smoking Status: Former smoker - SURGICAL HISTORY Past Surgical History: bilat hernia repair, heart cath (), colonoscopy - RESPIRATORY Hx Respiratory Disorders: Yes Hx Sleep Apnea: Yes Hx of CPAP: No (has but does not use) - CARDIOVASCULAR Hx Cardio Disorders: Yes Hx Cardiac Cath: Yes (1969) Hx Hypertension: Yes - NEURO Hx Neuro Disorders: Yes Hx Parkinson's Disease: Yes (dx'd 2013) - GI Hx GI Disorders: Yes Hx Ulcer: Yes - Hx Genitourinary Disorders: Yes Hx Kidney Stones: Yes - ENDOCRINE Hx Endocrine Disorders: No Hx Diabetes: No - MUSCULOSKELETAL Hx Musculoskeletal Disorders: Yes Hx Arthritis: Yes - PSYCH Hx Psych Problems: Yes Hx Depression: Yes - HEMATOLOGY/ONCOLOGY Hx Hematology/Oncology Disorders: No Family Medical History Any Significant Family History?: Yes Family Hx Comment (NOT TO BE USED IN PLACE OF ITEMS BELOW): Son has Crohns disease H&P Meds/Allergies - Allergies Allergies: Allergies Allergy/AdvReac Type Severity Reaction Status Date / Time peanut AdvReac NAUSEA AND Verified 03/21/14 14:18 VOMITING - Active Medications Active Medications: Current Medications Acetaminophen (Tylenol 500mg Tab) 1,000 mg PO Q6H PRN PRN Reason: PAIN - MILD (1-4) Last Admin: 03/02/19 06:02 Dose: 1,000 mg Documented by: Atenolol (Tenormin) 25 mg PO BID [facility] Last Admin: 03/01/19 22:16 Dose: 25 mg Documented by: Carbidopa/Levodopa (Sinemet) 2 each PO QIDACHS [facility] Last Admin: 03/02/19 06:03 Dose: 2 each Documented by: Duloxetine HCl (Cymbalta) 30 mg PO DAILY [facility] Enoxaparin Sodium (Lovenox) 40 mg SQ DAILY [facility] Gabapentin (Neurontin) 100 mg PO QHS [facility] Last Admin: 03/01/19 22:16 Dose: 100 mg Documented by: Nystatin (Nystop) 5 gm TP ASDIR PRN PRN Reason: RASH Terazosin HCl (Hytrin) 2 mg PO QHS [facility] Last Admin: 03/01/19 22:16 Dose: 2 mg Documented by: Physical Exam - Vital Signs Vital Signs: Vital Signs - Last 24 Hrs Temp Pulse Resp BP BP Pulse Ox 03/02/19 08:00 97.7 F 50 L 16 142/78 99 03/01/19 20:00 97.5 F L 82 16 150/73 99 03/01/19 15:00 97.7 F 60 16 159/72 99 03/01/19 14:13 97.7 F 159/72 - General General Appearance: Alert, Oriented x3, Cooperative, No acute distress - Head Head exam: Normocephalic - Eye Eye exam: Normal appearance, PERRL - ENT ENT exam: Normal exam - Respiratory Respiratory exam: Normal lung sounds bilaterally - Cardiovascular Cardiovascular Exam: Regular rate - Extremities Extremities exam: Normal capillary refill. negative: Pedal edema, Tenderness - Neurological Neurological exam: Other (resting tremor) Discharge Potential - Discharge Needs Community Services Used Prior to Admission: None Patient Discharge Plan Description: Return Home, Visiting Nurse Community Services Needed at Discharge: Home Delivered Meals, Home Health Aide, Home Health Nurse, Occupational Therapy, Physical Therapy Plan - Swing Bed Certification Initial Certification Due: 03/01/19 14 Day Re-Cert Due: 03/15/19 44 Day Re-Cert Due: 04/14/19 74 Day Re-Cert Due: 05/14/19 - Detailed Diagnosis and Plan (1) Physical deconditioning Current Visit: No Status: Acute Base Code: R53.81 - OTHER [place] Comment: 03/02/19: -PT/OT working with patient in Swing Bed program -Patient requiring assist up to bathroom, out of bed, and with ambulation in halls -Uses walker, lives home alone (2) Parkinson disease Current Visit: No Status: Acute Base Code: G20 - PARKINSON'S DISEASE Comment: 03/02/19: -Progressing parkinson's with progressively worsening tremors -Sinemet increased by Neurologist on 02/16/19 (per patient) -Continue Sinemet 50/200 QID (3) DNR (do not resuscitate) Current Visit: No Status: Acute Base Code: Z66 - DO NOT RESUSCITATE Comment: 03/02/19: -Patient DNR
[2019-03-02] MEDS: DULOXETINE HCL 30 MG CAPSULE.DR PO SCH (10:49)
[2019-03-02] MEDS: ENOXAPARIN 40 MG/0.4 ML SYR SQ SCH (10:50)
[2019-03-02] MEDS: ATENOLOL 25 MG TABLET PO SCH ×2 (10:50→21:24)
--- NOTE | 2019-03-02 13:52 | Physical Therapy Tx Note ---
Physical Therapy Tx Note - Treatment Note Total Time Spent With Patient: 30 Physical Therapy Tx Note: Detail (Therapy session began with patient sitting in recliner. Patient completed sit to stand with minimal assistance x1 with verbal and tactile cueing. Patient ambulated 8 feet to W/C that was in the hallway and was brought down to the rehab department. Patient was brought to the parallel bars to complete balance training and strengthening exercises. Patient completed standing arm swing to focus on full shoulder ROM and extension of cervical and thoracic spine using one hand support and CGAx1 for safety. Patient completed exercise bilaterally 8x on each side. Patient then did forward lunges with bilateral hand support with CGAx1 4x on each side. Afterwards, patient ambulated in the parallel bars 2x with CGAx2 to step over two objects 10 inches in height, with focus of exaggerated step for strengthening. Afterwards, patient stood in parallel bars without using hands for support with eyes closed for 20 seconds with minimal assistance x1 to prevent posterior tilting. Patient was then brought to occupational therapy in W/C following treatment session.) Physical Therapy Problem List: Detail (1. Assistance with transfers 2. Decreased ability to complete prolonged activity 3. Increased tone of LE's and trunk 4. Decreased LE and trunk ROM due to increased tone 5. Numerous gait deviations increasing fall risk 6. Decreased gait speed impacting fall risk) Physical Therapy Goals: 1. Patient will ambulate 75-100 feet with appropriate assistive device independently. 2. Evaluate bed mobility. 3. Patient will ambulate 3 steps on stairs with use of one railing with supervision for safety. 4. Patient will independently complete transfer without verbal cueing. 5. Patient will improve score on Mini BESTest by 5 points to demonstrate a significant change of improvement due to MCID for Parkinson's Disease for the outcome measure. 6. Patient will stand on one leg for greater than 20 seconds without support or assistance to aid in strength and increased balance for function. Physical Therapy Plan: PT 1-2 times a day for gait and transfer training, neuromuscular re-education, balance exercises, bed mobility, tone reduction techniques, manual therapy techniques to improve trunk mobility.
--- NOTE | 2019-03-02 15:11 | Occupational Therapy Tx Note ---
Occupational Therapy Tx Note - Treatment Note Tolerated: Good Total Time Spent With Patient: 50 (neuro reeduc, ADL) Occupational Therapy Treatment Note: Detail (S: Pt seen in rehab gym. He was in good spirits. O: Pt completed raiza UE reaching/coordination activity with graded clothespins including resisted pinch and overhead repetitive reaching bilaterally. Pt required moderate verbal cues to maintain attention to task and had mild difficulty with vision as noted by difficulty seeing post to clip clothespins on. Pt reports mild shoulder fatigue and tremors were improved during activity. Pt transported back to room via wheelchair. Pt amb 10 feet to sink with 2 wheeled walker and was able to stand at sink for 10 min to perform shaving activity. He required assist to open shaving cream but he was able to dispense cream, apply to face and partially complete shaving. He had difficulty applying appropriate pressure to face with razor. Pt then needed to use the toilet and he amb several steps to toilet with walker and required assist to untie pants. He was able to pull pants and briefs over hips and sat on toilet with verbal cues to use grab bar. Pt completed toileting with assist for wiping. Pants were soiled and removed per OT. Pt amb to EOB with 2 wheeled walker and SBA and was able to complete sit to supine Indly. A: Pt requires assist for shaving due to decreased UE coordination and strength. Improved endurance today although still impaired for self cares.) Occupational Therapy Problem List: Detail (1. Decreased Ind with total body dressing. 2. Decreased Ind with showering. 3. Decreased raiza UE coordination due to tremors. 4. Decreased endurance needed for safe and Ind ADLs/IADLs.) Occupational Therapy Goals: 1. Pt will be Ind with total body dressing. 2. Pt will be safe and Ind with total body showering in sitting and standing. 3. Pt will demonstrate improved UE coordination to allow Ind with ADLs/IADLs. 4. Pt will demonstrate improved endurance to allow Ind with showering/dressing tasks. Prognosis: Good Occupational Therapy Plan: OT 2-4 times per week to address UE function, overall endurance, self cares and IADLs to allow safe and Ind return home.
[2019-03-02] MEDS: TERAZOSIN HCL 1 MG CAPSULE PO SCH (21:22)
[2019-03-02] MEDS: GABAPENTIN 100 MG CAPSULE PO SCH (21:23)
[2019-03-03] MEDS: ACETAMINOPHEN 500 MG TABLET PO PRN (06:18)
[2019-03-03] MEDS: ATENOLOL 25 MG TABLET PO SCH ×2 (10:48→21:24)
[2019-03-03] MEDS: CARBIDOPA/LEVODOPA 25MG/100MG TABLET PO SCH ×3 (10:48→18:17)
[2019-03-03] MEDS: ENOXAPARIN 40 MG/0.4 ML SYR SQ SCH (10:48)
[2019-03-03] MEDS: DULOXETINE HCL 30 MG CAPSULE.DR PO SCH (10:48)
[2019-03-03] MEDS ORDERED: OPTH OPTH PRN (12:41)
[2019-03-03] MEDS ORDERED: KETOTIFEN 0.025% OPTH PRN (12:41)
--- NOTE | 2019-03-03 14:06 | Physical Therapy Tx Note ---
Physical Therapy Tx Note - Treatment Note Tolerated: Good Total Time Spent With Patient: 60 Physical Therapy Tx Note: Detail (Pt was sitting up in recliner upon arrival. Reported that he had awakened with a headache but felt better now. VCs for scooting forward in recliner, for hand placements on armrests, to lean forward to come to standing. Sit/stand w/min assist to front wheeled walker. Ambulated w/FWW from bedside to wheelchair placed next to nrsg station (about 50 feet) w/CGA; VCs to approach wheelchair, turn walker/feet for positioning, to place hands on wheelchair armrests to sit. Transported to Rehab gym for therapeutic exercise: standing hip flexion, extension, abduction x 10 reps B, mini-squats x 10, heel raises x 10. Seated marching and knee extension x 10 B. Seated arm lift w/2# ball x 10, seated elbow flexion w/2# ball x 10. Standing balance w/o UE support in normal stance, stride stances on firm surface and on foam surface; tandem stances on firm. All exercises performed in parallel bars w/CGA or SBA. Sit/stand transfers from wheelchair w/VCs for technique, CGA for rest periods. Ambulated w/FWW from parallel bars to back counter (about 50 feet) w/CGA. Transported back to room in wheelchair; transferred from wheelchair to recliner w/FWW, SBA for sit/stand transfer, VCs for technique. Left up in recliner w/call light and bedside table in reach; nrsg in room for medication administration. Pt reported fatigue but expressed hope that he would get stronger.) Physical Therapy Problem List: Detail (1. Assistance with transfers 2. Decreased ability to complete prolonged activity 3. Increased tone of LE's and trunk 4. Decreased LE and trunk ROM due to increased tone 5. Numerous gait deviations increasing fall risk 6. Decreased gait speed impacting fall risk) Physical Therapy Goals: 1. Patient will ambulate 75-100 feet with appropriate assistive device independently. 2. Evaluate bed mobility. 3. Patient will ambulate 3 steps on stairs with use of one railing with supervision for safety. 4. Patient will independently complete transfer without verbal cueing. 5. Patient will improve score on Mini BESTest by 5 points to demonstrate a significant change of improvement due to MCID for Parkinson's Disease for the outcome measure. 6. Patient will stand on one leg for greater than 20 seconds without support or assistance to aid in strength and increased balance for function. Physical Therapy Plan: PT 1-2 times a day for gait and transfer training, neuromuscular re-education, balance exercises, bed mobility, tone reduction techniques, manual therapy techniques to improve trunk mobility.
[2019-03-03 18:03] LABS: URINE APPEARANCE CLEAR; URINE BILIRUBIN NEGATIVE (NEGATIVE); URINE BLOOD NEGATIVE (NEGATIVE); URINE COLOR YELLOW; URINE GLUCOSE (UA) NEGATIVE (NEGATIVE); URINE KETONE NEGATIVE (NEGATIVE); URINE LEUKOCYTE ESTERASE NEGATIVE (NEGATIVE); URINE NITRITE NEGATIVE (NEGATIVE); URINE PROTEIN NEGATIVE (NEGATIVE); URINE UROBILINOGEN 0.2 E.U./dL (0.20 - 1.00)
[2019-03-03] MEDS: TERAZOSIN HCL 1 MG CAPSULE PO SCH (21:24)
[2019-03-03] MEDS: GABAPENTIN 100 MG CAPSULE PO SCH (21:24)
[2019-03-03] MEDS: CARBIDOPA PO SCH (21:26)
[2019-03-03] MEDS: LEVODOPA PO SCH (21:26)
[2019-03-04] MEDS: LEVODOPA PO SCH ×3 (06:26→21:33)
[2019-03-04] MEDS: CARBIDOPA PO SCH ×3 (06:26→21:33)
--- NOTE | 2019-03-04 09:41 | Physical Therapy Tx Note ---
Physical Therapy Tx Note - Treatment Note Total Time Spent With Patient: 30 Physical Therapy Tx Note: Detail (Patient began therapy sitting in recliner. Patient was assessed for bed mobility. During sit to stand transfer from recliner, patient required 2 tries before standing with CGAx2 for safety. Patient then ambulated to the left side of the bed. Patient transfered from L EOB to supine with CGAx2 and required consistent verbal cueing throughout for sequencing. Patient then returned to sitting L EOB and required consistent verbal cueing and SBAx2 for the transfer. During sit to stand from the bed, patient required verbal and tactile cueing for safety and sequencing. Patient then ambulated 12 feet from hospital bed to W/C in hallway. Therapist moved walker to help patient turn and reach target of W/C. Patient was brought to the rehab department to assess stair mobility. Patient required minimal assistance x2 with maximal verbal cueing for ascending 2 steps and descending 3 steps utilizing bilateral handrails. Patient ambulated with minimal assistance x2 with 2-wheeled walker to W/C but patient had a freezing episode with increased respiration rate and observable anxiety. Due to patient being unsafe and increased noticeable confusion, W/C was brought closer to decrease potential for fall. Overall, patient's cognition seemed to be decreased in comparison to previous therapies and required consistent verbal and tactile cueing. Patient was deemed to be unsafe on stairs and required 100% assistance with sequencing, foot placement, and weight shifting. Therefore, further physical therapy is needed to ensure that patient is safe for transition home. At the end of session, patient was brought to occupational therapist for next scheduled appointment.) Physical Therapy Problem List: Detail (1. Assistance with transfers 2. Decreased ability to complete prolonged activity 3. Increased tone of LE's and trunk 4. Decreased LE and trunk ROM due to increased tone 5. Numerous gait deviations increasing fall risk 6. Decreased gait speed impacting fall risk) Physical Therapy Goals: 1. Patient will ambulate 75-100 feet with appropriate assistive device independently. 2. Evaluate bed mobility. 3. Patient will ambulate 3 steps on stairs with use of one railing with supervision for safety. 4. Patient will independently complete transfer without verbal cueing. 5. Patient will improve score on Mini BESTest by 5 points to demonstrate a significant change of improvement due to MCID for Parkinson's Disease for the outcome measure. 6. Patient will stand on one leg for greater than 20 seconds without support or assistance to aid in strength and increased balance for function. Physical Therapy Plan: PT 1-2 times a day for gait and transfer training, neuromuscular re-education, balance exercises, bed mobility, tone reduction techniques, manual therapy techniques to improve trunk mobility.
[2019-03-04] MEDS: ATENOLOL 25 MG TABLET PO SCH ×3 (10:49→21:33)
[2019-03-04] MEDS: DULOXETINE HCL 30 MG CAPSULE.DR PO SCH (10:49)
[2019-03-04] MEDS: ENOXAPARIN 40 MG/0.4 ML SYR SQ SCH (10:49)
--- NOTE | 2019-03-04 12:01 | Occupational Therapy Tx Note ---
Occupational Therapy Tx Note - Treatment Note Tolerated: Good Total Time Spent With Patient: 60 (1 TA, 1 TE, 2 SC) Occupational Therapy Treatment Note: Detail (S: Pt at therapy gym post PT Tx, ready for OT. O: Pt doffs and dons socks and shoes with greatly increased time and MIN verbal instruction for sequencing and technique, supervision level overall. OT educates Pt on large UB exercises with repeated verbal instruction and tactile cues, as Pt demos small mvmts that decrease fxl indep - AROM stretching and strengthening - bilat UE horizontal abduction 0-180* with fully extended fingers 2 reps x 3 sets, Pt arms fatigue quickly requiring rest breaks between 2 reps. OT educated Pt on deep breathing when Pt feeling SOB, SpO2 maintained >94% throughout Tx. Fxl mob with FWW ~20 ft with verbal instruction for safe FWW use, Pt demos shuffling feet. Discussion with Pt re: home setup , CLOF, and nature of Parkinson's diagnosis. Pt reports he lately avoids showering due to FOF, OT educated Pt on benefits of home care and/or increased assist at home. Educ Pt on home mods, including removing throw rugs, night lights, use of FWW, and moving cat litter from floor level to a higher surface to decrease fall risk with bending to floor level. At baseline, Pt's son visits 1x/wk to fill pill box and get groceries.) Occupational Therapy Problem List: Detail (1. Decreased Ind with total body dressing. 2. Decreased Ind with showering. 3. Decreased raiza UE coordination due to tremors. 4. Decreased endurance needed for safe and Ind ADLs/IADLs.) Occupational Therapy Goals: 1. Pt will be Ind with total body dressing. 2. Pt will be safe and Ind with total body showering in sitting and standing. 3. Pt will demonstrate improved UE coordination to allow Ind with ADLs/IADLs. 4. Pt will demonstrate improved endurance to allow Ind with showering/dressing tasks. Prognosis: Good Occupational Therapy Plan: OT 2-4 times per week to address UE function, overall endurance, self cares and IADLs to allow safe and Ind return home.
[2019-03-04] MEDS: GABAPENTIN 100 MG CAPSULE PO SCH (21:34)
[2019-03-04] MEDS: TERAZOSIN HCL 1 MG CAPSULE PO SCH (21:34)
[2019-03-05] MEDS: CARBIDOPA PO SCH ×3 (06:43→21:30)
[2019-03-05] MEDS: LEVODOPA PO SCH ×3 (06:43→21:30)
[2019-03-05] MEDS: ACETAMINOPHEN 500 MG TABLET PO PRN (08:09)
[2019-03-05] MEDS: DULOXETINE HCL 30 MG CAPSULE.DR PO SCH (10:59)
[2019-03-05] MEDS: ATENOLOL 25 MG TABLET PO SCH ×2 (10:59→21:30)
[2019-03-05] MEDS: ENOXAPARIN 40 MG/0.4 ML SYR SQ SCH (10:59)
[2019-03-05] MEDS: GABAPENTIN 100 MG CAPSULE PO SCH (21:31)
[2019-03-05] MEDS: TERAZOSIN HCL 1 MG CAPSULE PO SCH (21:31)
[2019-03-06] MEDS: CARBIDOPA PO SCH ×3 (06:35→22:14)
[2019-03-06] MEDS: LEVODOPA PO SCH ×3 (06:35→22:14)
[2019-03-06] MEDS: DULOXETINE HCL 30 MG CAPSULE.DR PO SCH (11:02)
[2019-03-06] MEDS: ENOXAPARIN 40 MG/0.4 ML SYR SQ SCH (11:02)
[2019-03-06] MEDS: ATENOLOL 25 MG TABLET PO SCH ×2 (11:04→22:15)
[2019-03-06] MEDS: GABAPENTIN 100 MG CAPSULE PO SCH (22:15)
[2019-03-06] MEDS: TERAZOSIN HCL 1 MG CAPSULE PO SCH (22:16)
[2019-03-07] MEDS: LEVODOPA PO SCH ×3 (06:38→21:30)
[2019-03-07] MEDS: CARBIDOPA PO SCH ×3 (06:38→21:30)
--- NOTE | 2019-03-07 09:15 | Occupational Therapy Tx Note ---
Occupational Therapy Tx Note - Treatment Note Tolerated: Good Total Time Spent With Patient: 65 (ADL) Occupational Therapy Treatment Note: Detail (S: Pt resting in bed, ready for OT. O: Supine to sit Indly. Sit to stand with verbal cues to push up from bed vs. pulling on walker. Pt amb to shower seat with 2 wheeled walker, CG assist and verbal cues. Pt able to doff briefs in standing and then sit to remove shirt and slipper socks. Pt completed showering in sitting and standing with min assist for thoroughness and to rinse buttocks, anju area and back, as well as CG during standing portion. Pt able to dry self Indly with CG assist while standing. Pt amb to toilet and completed toileting with min assist to tear toilet paper and CG for standing. Pt amb to chair with 2 wheeled walker and CG assist. Pt donned brief with assist to start over feet and to pull up over back. Pt donned t-shirt Indly. Pt donned shorts with min assist and slipper socks with max assist. Pt combed hair with min assist. A: Pt had increased UE tremors this morning and required min to mod assist with showering/dressing tasks as well as verbal cues for proper sit to stand technique.) Occupational Therapy Problem List: Detail (1. Decreased Ind with total body dressing. 2. Decreased Ind with showering. 3. Decreased raiza UE coordination due to tremors. 4. Decreased endurance needed for safe and Ind ADLs/IADLs.) Occupational Therapy Goals: 1. Pt will be Ind with total body dressing. 2. Pt will be safe and Ind with total body showering in sitting and standing. 3. Pt will demonstrate improved UE coordination to allow Ind with ADLs/IADLs. 4. Pt will demonstrate improved endurance to allow Ind with showering/dressing tasks. Prognosis: Good Occupational Therapy Plan: OT 2-4 times per week to address UE function, overall endurance, self cares and IADLs to allow safe and Ind return home.
[2019-03-07] MEDS: ATENOLOL 25 MG TABLET PO SCH ×2 (09:48→21:30)
[2019-03-07] MEDS: DULOXETINE HCL 30 MG CAPSULE.DR PO SCH (09:48)
[2019-03-07] MEDS: ENOXAPARIN 40 MG/0.4 ML SYR SQ SCH (09:48)
--- NOTE | 2019-03-07 14:37 | Physical Therapy Tx Note ---
Physical Therapy Tx Note - Treatment Note Tolerated: Fair Total Time Spent With Patient: 40 Physical Therapy Tx Note: Detail (Patient started therapy session sitting in recliner. Patient completed sit to stand with 2 tries prior to completion with minimal assistance x1 with 2-wheeled walker for support. Patient then ambulated 112 feet with 2-wheeled walker and CGAx1 for safety. Patient required moderate verbal cueing for upright posture and maneuvering around objects. Patient was then brought to the rehab department. In the parallel bars, patient completed standing arm swings with CGAx2 for safety for a total of 8 repetitions bilaterally with a rest break inbetween. Maximal verbal and tactile cueing with consistent demonstration was required throughout exercise. Patient then completed forward lunges with stomping for a total of 10x each side with bilateral arm support. Afterwards patient completed standing trunk rotation 4x each side with CGAx2 for safety and required a rest break inbetween sets. Maximal verbal and tactile cueing with consistent demonstration was required with rotation to the left with only moderate cueing required for rotation to the right. Patient was brought back to room after therapy session and completed sit to stand transfer from wheelchair with 2-wheeled walker for support and supervision assistance x1 during transfer. Patient then completed standing pivot transfer to the right towards the recliner and required verbal cueing of hand placement for safety. Patient was left in room with call light by his side.) Physical Therapy Problem List: Detail (1. Assistance with transfers 2. Decreased ability to complete prolonged activity 3. Increased tone of LE's and trunk 4. Decreased LE and trunk ROM due to increased tone 5. Numerous gait deviations increasing fall risk 6. Decreased gait speed impacting fall risk) Physical Therapy Goals: 1. Patient will ambulate 75-100 feet with appropriate assistive device independently. (Partially met, patient met distance requirement but is CGAx1 for safety). 2. Evaluate bed mobility. (met). 3. Patient will ambulate 3 steps on stairs with use of one railing with supervision for safety. 4. Patient will independently complete transfer without verbal cueing. 5. Patient will improve score on Mini BESTest by 5 points to demonstrate a significant change of improvement due to MCID for Parkinson's Disease for the outcome measure. 6. Patient will stand on one leg for greater than 20 seconds without support or assistance to aid in strength and increased balance for function. Physical Therapy Plan: PT 1-2 times a day for gait and transfer training, neuromuscular re-education, balance exercises, bed mobility, tone reduction techniques, manual therapy techniques to improve trunk mobility.
[2019-03-07] MEDS: TERAZOSIN HCL 1 MG CAPSULE PO SCH (21:30)
[2019-03-07] MEDS: GABAPENTIN 100 MG CAPSULE PO SCH (21:30)
[2019-03-08] MEDS: LEVODOPA PO SCH ×3 (07:09→21:02)
[2019-03-08] MEDS: CARBIDOPA PO SCH ×3 (07:09→21:02)
[2019-03-08] MEDS: ACETAMINOPHEN 500 MG TABLET PO PRN (07:49)
[2019-03-08] MEDS: ATENOLOL 25 MG TABLET PO SCH ×2 (09:33→21:01)
[2019-03-08] MEDS: ENOXAPARIN 40 MG/0.4 ML SYR SQ SCH (09:33)
[2019-03-08] MEDS: DULOXETINE HCL 30 MG CAPSULE.DR PO SCH (09:33)
--- NOTE | 2019-03-08 14:53 | Physical Therapy Tx Note ---
Physical Therapy Tx Note - Treatment Note Total Time Spent With Patient: 35 Physical Therapy Tx Note: Detail (Patient was brought into rehab department following occupational therapy session. Patient began session with 5 repetitions of 3 sets of sit to stands in the parallel bars. Patient then completed standing arm swings with one hand support for 8 repetitions bilaterally. During arm swing exercise, patient required verbal and tactile cueing throughout with demonstration. During stair training, patient ascended 2 6-inch steps and descended 3 4-inch steps with bilateral handrail support with CGAx2 with verbal cueing for foot placement and sequencing. Patient was able to follow more simple commands in comparison to last practice on stairs on 03/04/19. Upon completion of stairs, patient reported hamstring muscle spasm in right lower extremity and required a rest break. Patient afterwards completed a sit to stand transfer from a low height chair with bilateral arm supports with moderate assistance x2. Patient then ambulated a total of 295 feet with 2-wheeled walker with CGAx1 with wheelchair follow and required minimal cueing for stride length and upright posture. Patient ambulated on hardwood floor, rugs, carpet, and entered/exited the elevator while anteriorly leaning forward to push the buttons to test standing balance. At the end of therapy session, patient was returned to room and completed standing pivot transfer to the right into the recliner. Patient required minimal verbal cueing for hand placement for safety. Patient was left in recliner with call light in place.) Physical Therapy Problem List: Detail (1. Assistance with transfers 2. Decreased ability to complete prolonged activity 3. Increased tone of LE's and trunk 4. Decreased LE and trunk ROM due to increased tone 5. Numerous gait deviations increasing fall risk 6. Decreased gait speed impacting fall risk) Physical Therapy Goals: 1. Patient will ambulate 75-100 feet with appropriate assistive device independently. (Partially met, patient met distance requirement but is CGAx1 for safety). 2. Evaluate bed mobility. (met). 3. Patient will ambulate 3 steps on stairs with use of one railing with supervision for safety. 4. Patient will independently complete transfer without verbal cueing. 5. Patient will improve score on Mini BESTest by 5 points to demonstrate a significant change of improvement due to MCID for Parkinson's Disease for the outcome measure. 6. Patient will stand on one leg for greater than 20 seconds without support or assistance to aid in strength and increased balance for function. Physical Therapy Plan: PT 1-2 times a day for gait and transfer training, neuromuscular re-education, balance exercises, bed mobility, tone reduction techniques, manual therapy techniques to improve trunk mobility.
--- NOTE | 2019-03-08 15:35 | Occupational Therapy Tx Note ---
Occupational Therapy Tx Note - Treatment Note Tolerated: Good Total Time Spent With Patient: 40 (ther ex) Occupational Therapy Treatment Note: Detail (S: Pt up in chair, feeling good this afternoon. O: Pt amb 10 feet to wheelchair with 2 wheeled walker and SBA. Pt transported to rehab gym via wheelchair. Pt completed vivek UE endurance/coordination activities using graded clothespins while reaching overhead repetitively. Pt completed vivek casting house worker strengthening with hand helper (3 red bands and 1 green band) x 20 reps each hand. Vivek hand rice dig for coordination/sensory retraining x 5 min each hand. Pt left with PT in rehab gym. A: Decreased UE tremors noted this afternoon, pt continues with decreased coordination and he reports some hand numbness with rice activity.) Occupational Therapy Problem List: Detail (1. Decreased Ind with total body dressing. 2. Decreased Ind with showering. 3. Decreased vivek UE coordination due to tremors. 4. Decreased endurance needed for safe and Ind ADLs/IADLs.) Occupational Therapy Goals: 1. Pt will be Ind with total body dressing. 2. Pt will be safe and Ind with total body showering in sitting and standing. 3. Pt will demonstrate improved UE coordination to allow Ind with ADLs/IADLs. 4. Pt will demonstrate improved endurance to allow Ind with showering/dressing tasks. Prognosis: Good Occupational Therapy Plan: OT 2-4 times per week to address UE function, overall endurance, self cares and IADLs to allow safe and Ind return home.
[2019-03-08] MEDS: TERAZOSIN HCL 1 MG CAPSULE PO SCH (21:00)
[2019-03-08] MEDS: GABAPENTIN 100 MG CAPSULE PO SCH (21:00)
[2019-03-09] MEDS: CARBIDOPA PO SCH ×3 (06:16→21:33)
[2019-03-09] MEDS: LEVODOPA PO SCH ×3 (06:16→21:33)
[2019-03-09] MEDS: ENOXAPARIN 40 MG/0.4 ML SYR SQ SCH (10:16)
[2019-03-09] MEDS: DULOXETINE HCL 30 MG CAPSULE.DR PO SCH (10:17)
[2019-03-09] MEDS: ATENOLOL 25 MG TABLET PO SCH ×2 (10:17→21:30)
--- NOTE | 2019-03-09 14:24 | Occupational Therapy Tx Note ---
Occupational Therapy Tx Note - Treatment Note Tolerated: Good Total Time Spent With Patient: 30 (ther activity) Occupational Therapy Treatment Note: Detail (S: Pt seen in rehab gym following PT. O: Pt and son report he has a shower with a glass door and a small tub se at but no grab bars in tub. Pt completed partial tub transfer but was too fatigued to lift both legs over tub edge. Verbally reviewed technique and discussed option of extended seat. This may not work due to glass doors. Pt educated re: use of walker in kitchen. Pt was able to demonstrate transporting items with walker but required verbal cues for proper walker placement. He was able to static stand and complete reaching into overhead cupboard x 20 reps. Pt was seated in chair and reported being fatigued. Pt transported back to room via wheelchair, transferred to chair with SBa and left seated with son present. A: Will cont. tub transfer teaching and review kitchen activities with walker.) Occupational Therapy Problem List: Detail (1. Decreased Ind with total body dressing. 2. Decreased Ind with showering. 3. Decreased raiza UE coordination due to tremors. 4. Decreased endurance needed for safe and Ind ADLs/IADLs.) Occupational Therapy Goals: 1. Pt will be Ind with total body dressing. 2. Pt will be safe and Ind with total body showering in sitting and standing. 3. Pt will demonstrate improved UE coordination to allow Ind with ADLs/IADLs. 4. Pt will demonstrate improved endurance to allow Ind with showering/dressing tasks. Prognosis: Good Occupational Therapy Plan: OT 2-4 times per week to address UE function, overall endurance, self cares and IADLs to allow safe and Ind return home.
--- NOTE | 2019-03-09 16:20 | Physical Therapy Tx Note ---
Physical Therapy Tx Note - Treatment Note Total Time Spent With Patient: 30 Physical Therapy Tx Note: Detail (Patient began therapy session sitting in recliner with son present throughout therapy session. Patient completed sit to stand transfer from recliner with minimal assistance x1 with cueing, using 2- wheeled walker for support. Patient then ambulated a total of 354 feet using 2- wheeled walker and CGAx1 for safety with 25% verbal cueing for increased stride length over transitions of carpet and hardwood surfaces. Patient ascended 2 6- inch steps and descended 3 4-inch steps using right railing 2x with CGAx2 for safety. Patient then completed sit to stand transfer to low height chair with bilateral arm support with minimal assistance x2. Patient then ambulated with 2- wheeled walker with CGAx1 6 feet to complete standing pivot transfer to the right to the wheelchair. Patient was brought to occupational therapist for next appointment at end of session.) Physical Therapy Problem List: Detail (1. Assistance with transfers 2. Decreased ability to complete prolonged activity 3. Increased tone of LE's and trunk 4. Decreased LE and trunk ROM due to increased tone 5. Numerous gait deviations increasing fall risk 6. Decreased gait speed impacting fall risk) Physical Therapy Goals: 1. Patient will ambulate 75-100 feet with appropriate assistive device independently. (Partially met, patient met distance requirement but is CGAx1 for safety). 2. Evaluate bed mobility. (met). 3. Patient will ambulate 3 steps on stairs with use of one railing with supervision for safety. 4. Patient will independently complete transfer without verbal cueing. 5. Patient will improve score on Mini BESTest by 5 points to demonstrate a significant change of improvement due to MCID for Parkinson's Disease for the outcome measure. 6. Patient will stand on one leg for greater than 20 seconds without support or assistance to aid in strength and increased balance for function. Physical Therapy Plan: PT 1-2 times a day for gait and transfer training, neuromuscular re-education, balance exercises, bed mobility, tone reduction techniques, manual therapy techniques to improve trunk mobility.
[2019-03-09] MEDS: GABAPENTIN 100 MG CAPSULE PO SCH (21:31)
[2019-03-09] MEDS: TERAZOSIN HCL 1 MG CAPSULE PO SCH (21:32)
[2019-03-09] MEDS ORDERED: ZINC OXIDE 28.35 GM TUBE TOP ONE (21:39)
[2019-03-09] MEDS ORDERED: ZINC OXIDE 28.35 GM TUBE TOP PRN (22:32)
[2019-03-10] MEDS: LEVODOPA PO SCH ×3 (06:07→21:43)
[2019-03-10] MEDS: CARBIDOPA PO SCH ×3 (06:07→21:43)
[2019-03-10] MEDS: ATENOLOL 25 MG TABLET PO SCH (10:32)
[2019-03-10] MEDS: ENOXAPARIN 40 MG/0.4 ML SYR SQ SCH (10:32)
[2019-03-10] MEDS: DULOXETINE HCL 30 MG CAPSULE.DR PO SCH (10:32)
--- NOTE | 2019-03-10 10:50 | Physician Progress Note ---
Subjective - Date Date of Progress Note: 03/10/19 - Admitting Diagnosis Diagnosis: deconditioning - Subjective Nursing Care Plan Problem List Activity Intolerance (Swing Bed) Start: 03/01/19 18:47 Freq: Status: Active Protocol: Created 03/01/19 18:47 MMT (Rec: 03/01/19 18:47 MMT [id number]) Altered Thought Process (Fall Risk) Start: 03/01/19 21:41 Freq: Status: Active Protocol: Created 03/01/19 21:41 LPR (Rec: 03/01/19 21:41 LPR [id number]) Impaired Mobility (Fall Risk) Start: 03/01/19 21:41 Freq: Status: Active Protocol: Created 03/01/19 21:41 LPR (Rec: 03/01/19 21:41 LPR [id number]) Knowledge Deficit (Swing Bed) Start: 03/01/19 18:47 Freq: Status: Active Protocol: Created 03/01/19 18:47 MMT (Rec: 03/01/19 18:47 MMT [id number]) Pain (Swing Bed) Start: 03/01/19 18:47 Freq: Status: Active Protocol: Created 03/01/19 18:47 MMT (Rec: 03/01/19 18:47 MMT [id number]) Risk for Injury (Fall Risk) Start: 03/01/19 21:41 Freq: Status: Active Protocol: Created 03/01/19 21:41 LPR (Rec: 03/01/19 21:41 LPR [id number]) - Subjective Detail Comment: No additional complaints except as noted below Neurological: Reports: Abnormal gait, Tremors General - Cognitive Patterns Speech: Normal Thought Process: Intact Thought Content: Normal - Communication Select best description of speech pattern: Clear Speech Ability to express ideas and wants: Understood Understanding verbal content: Understands - Mood and Behavior Patterns Mood: Normal Attitude: Cooperative Motor Activity: Calm Affect: Appropriate Hallucinations: Denies - Physical Functioning Activity Level: Up with assist x1 Turning: Self ad jarocho ROM Ability: Moves all extremities Assistive Devices: 2 Wheel Walker Ambulation Ability: Needs Assist Bed Mobility: Independent Transfer Ability: Needs Assist Bathing Ability: Independent Personal Hygiene: Independent Dressing Ability: Independent Eating (Feeding) Ability: Independent Toileting Ability: Independent Administer Own Medication: Independent - Continence Bowel Pattern: Normal for Patient Bladder Pattern: Normal Urinary Incontinence: Total Meds/Allergies - Allergies Allergies Allergy/AdvReac Type Severity Reaction Status Date / Time peanut AdvReac NAUSEA AND Verified 03/21/14 14:18 VOMITING - Active Medications Current Medications Acetaminophen (Tylenol 500mg Tab) 1,000 mg PO Q6H PRN PRN Reason: PAIN - MILD (1-4) Last Admin: 03/08/19 07:49 Dose: 1,000 mg Documented by: Atenolol (Tenormin) 25 mg PO BID [facility] Last Admin: 03/10/19 10:32 Dose: 25 mg Documented by: Duloxetine HCl (Cymbalta) 30 mg PO DAILY [facility] Last Admin: 03/10/19 10:32 Dose: 30 mg Documented by: Enoxaparin Sodium (Lovenox) 40 mg SQ DAILY [facility] Last Admin: 03/10/19 10:32 Dose: 40 mg Documented by: Gabapentin (Neurontin) 100 mg PO QHS [facility] Last Admin: 03/09/19 21:31 Dose: 100 mg Documented by: Nystatin (Nystop) 5 gm TP ASDIR PRN PRN Reason: RASH Patient Own Med: Ketotifen 0.025% Opth Drops 1 each OPTH BID PRN PRN Reason: ALLERGIES Last Admin: 03/03/19 13:54 Dose: 1 each Documented by: Patient Own Med: Carbidopa/Levodopa Er 50/200mg 1 each PO 0700,1400,2200 [facility] Last Admin: 03/10/19 06:07 Dose: 1 each Documented by: Terazosin HCl (Hytrin) 2 mg PO QHS [facility] Last Admin: 03/09/19 21:32 Dose: 2 mg Documented by: Zinc Oxide (Desitin) 10 gm TOP ASDIR PRN PRN Reason: RASH Objective - Vital Signs Vital Signs: Vital Signs - Last 24 Hrs Temp Pulse Resp BP Pulse Ox 03/10/19 08:00 97.9 F 56 L 16 163/68 93 L 03/09/19 19:58 97.1 F L 68 20 146/66 96 - General General Appearance: Alert, Oriented x3, Cooperative, No acute distress - Head Head exam: Normocephalic - Eye Eye exam: Normal appearance, PERRL - ENT ENT exam: Normal exam - Respiratory Respiratory exam: Normal lung sounds bilaterally - Cardiovascular Cardiovascular Exam: Regular rate Peripheral Pulses: 3+: Radial (R), Radial (L) - GI/Abdominal GI/Abdominal exam: Soft, Normal bowel sounds - Extremities Extremities exam: Normal capillary refill. negative: Pedal edema, Tenderness - Neurological Neurological exam: Abnormal gait, Alert, Other (resting tremor) Discharge Potential - Discharge Needs Community Services Used Prior to Admission: None Patient Discharge Plan Description: Return Home, Visiting Nurse Community Services Needed at Discharge: Home Delivered Meals, Home Health Aide, Home Health Nurse, Occupational Therapy, Physical Therapy Plan - Swing Bed Certification Initial Certification Due: 03/01/19 14 Day Re-Cert Due: 03/15/19 44 Day Re-Cert Due: 04/14/19 74 Day Re-Cert Due: 05/14/19 - Detailed Diagnosis and Plan (1) Physical deconditioning Current Visit: No Status: Acute Base Code: R53.81 - OTHER MALAISE Comment: 03/10/19: - Patient improving with gait and transfer training daily. - Still requiring assistance for ambulation. (2) Hypertension Current Visit: No Status: Acute Base Code: I10 - ESSENTIAL (PRIMARY) HYPERTENSION Comment: 03/10/19: - BP not controlled. - Increased Atenolol to 50mg BID. Holding parameters for SBP < 120, HR < 55. (3) Parkinson disease Current Visit: No Status: Acute Base Code: G20 - PARKINSON'S DISEASE Comment: 03/10/19: - Progressing Parkinson's with progressively worsening tremors. - On Sinemet 50/200 QID. - To follow with Neurology on discharge. (4) DVT prophylaxis Current Visit: No Status: Acute Base Code: Z29.9 - ENCOUNTER FOR PROPHYLACTIC MEASURES, UNSPECIFIED Comment: 03/10/19: -High risk due to age and hospitalization -Encouraged ambulation within the room -Lovenox 40mg SQ daily (5) DNR (do not resuscitate) Current Visit: No Status: Acute Base Code: Z66 - DO NOT RESUSCITATE Comment: 03/10/19: -Patient DNR. - Disposition Discharge planned for Thursday of next week.
--- NOTE | 2019-03-10 11:14 | Physical Therapy Tx Note ---
Physical Therapy Tx Note - Treatment Note Tolerated: Good Total Time Spent With Patient: 60 Physical Therapy Tx Note: Detail (Pt was sitting in a chair with call light upon arrival. Pt performed sit to stands bringing arms overhead x10, pt ambulated with front wheeled walker with contact guard assist for 1156ft, lunges with stomping x5 bilat, standing lat trunk rotations with a ball x10, standing bringing ball overhead x5, stepping over 3 cones in parallel bars x6, cone stacking and unstacking 5 cones bilat x2ea direction while seated. Pt was fatigued following Rx with increased termors while seated. Pt required lots of verbal and tactile cuing to perform activites. Pt was returned to room after ambulating and left in bed with call light and nurse was present.) Physical Therapy Problem List: Detail (1. Assistance with transfers 2. Decreased ability to complete prolonged activity 3. Increased tone of LE's and trunk 4. Decreased LE and trunk ROM due to increased tone 5. Numerous gait deviations increasing fall risk 6. Decreased gait speed impacting fall risk) Physical Therapy Goals: 1. Patient will ambulate 75-100 feet with appropriate assistive device independently. (Partially met, patient met distance requirement but is CGAx1 for safety). 2. Evaluate bed mobility. (met). 3. Patient will ambulate 3 steps on stairs with use of one railing with supervision for safety. 4. Patient will independently complete transfer without verbal cueing. 5. Patient will improve score on Mini BESTest by 5 points to demonstrate a significant change of improvement due to MCID for Parkinson's Disease for the o ndcome measure. 6. Patient will stand on one leg for greater than 20 seconds without support or assistance to aid in strength and increased balance for function. Prognosis: Good Physical Therapy Plan: PT 1-2 times a day for gait and transfer training, neuromuscular re-education, balance exercises, bed mobility, tone reduction techniques, manual therapy techniques to improve trunk mobility.
[2019-03-10] MEDS: TERAZOSIN HCL 1 MG CAPSULE PO SCH (21:33)
[2019-03-10] MEDS: ATENOLOL 50 MG TABLET PO SCH (21:42)
[2019-03-10] MEDS: GABAPENTIN 100 MG CAPSULE PO SCH (21:42)
[2019-03-10] MEDS ORDERED: ATENOLOL 50 MG TABLET PO SCH (22:00)
[2019-03-11] MEDS: CARBIDOPA PO SCH ×3 (09:09→21:24)
[2019-03-11] MEDS: LEVODOPA PO SCH ×3 (09:09→21:24)
[2019-03-11] MEDS: ENOXAPARIN 40 MG/0.4 ML SYR SQ SCH (09:10)
[2019-03-11] MEDS: ATENOLOL 50 MG TABLET PO SCH ×2 (09:10→21:24)
[2019-03-11] MEDS: DULOXETINE HCL 30 MG CAPSULE.DR PO SCH (09:10)
--- NOTE | 2019-03-11 10:20 | Occupational Therapy Tx Note ---
Occupational Therapy Tx Note - Treatment Note Tolerated: Good Total Time Spent With Patient: 60 (ADL) Occupational Therapy Treatment Note: Detail (S: Pt up in chair, hoping to work on shaving. O: Sit to stand and amb to sink with 2 wheeled walker with SBA. Pt able to static stand x 12 min and then had to sit while shaving. Pt able to partially shave using shaving cream and disposable razor. Pt required assist due to length of facial hair and due to raiza UE tremors. He reports he typically uses an electric razor. Pt sit to stand from chair with min assist and amb to shower with walker and SBA. Pt doffed hospital pants, briefs, slipper socks and shirt in standing and sitting with SBA. Pt completed showering with min assist and extra time due to slow initiation and UE tremors. Pt dried self with assist for back, donned t-shirt with min assist to orient shirt correctly and max assist for briefs, hospital pants and slipper socks due to significant fatigue. Pt amb to chair with 2 wheeled walker and CG assist. A: Pt required min assist for shower and max assist for lower body dressing due to fatigue. Endurance is improving overall but is still impaired.) Occupational Therapy Problem List: Detail (1. Decreased Ind with total body dressing. 2. Decreased Ind with showering. 3. Decreased raiza UE coordination due to tremors. 4. Decreased endurance needed for safe and Ind ADLs/IADLs.) Occupational Therapy Goals: 1. Pt will be Ind with total body dressing. 2. Pt will be safe and Ind with total body showering in sitting and standing. 3. Pt will demonstrate improved UE coordination to allow Ind with ADLs/IADLs. 4. Pt will demonstrate improved endurance to allow Ind with showering/dressing tasks. Prognosis: Good Occupational Therapy Plan: OT 2-4 times per week to address UE function, overall endurance, self cares and IADLs to allow safe and Ind return home.
--- NOTE | 2019-03-11 14:46 | Physical Therapy Tx Note ---
Physical Therapy Tx Note - Treatment Note Total Time Spent With Patient: 60 Physical Therapy Tx Note: Detail (Patient began therapy session sitting in recliner and reported that he was ready for therapy today. Patient completed sit to stand from recliner with 3 attempts prior to completion with 2-wheeled walker for support and minimal assistance x1. Patient ambulated 10 feet and completed standing pivot transfer to the right into the W/C with verbal / tactile cueing for sequencing and hand placement for safety. Patient was then brought down to the rehab department and ambulated 150 feet with 2-wheeled walker with SBAx1 with verbal cueing for increasing stride length. Afterwards, patient was assessed for tub transfer, stepping into the tub to the left. Patient was able to get left leg into tub and had freezing episode for 30 seconds and required moderate assistance x2 for safety and verbal cueing. Patient then was able to raise left leg out of tub and completed standing pivot transfer to the wheelchair with CGAx1 with verbal cueing for hand placement. Patient was brought to parallel bars and completed 10 sit to stands with bilateral hand support on walker and CGAx1 for safety. Patient also completed in the parallel bars 2 sets of stepping over 2 cones with exaggerated large steps with bilateral hand support, to help prepare for tub transfer. Patient required CGAx2 with verbal cueing for sequencing and step placement. Patient then attempted tub transfer for the second time stepping in towards the left with right hand on the wall in front of him and left hand on the tub wall for support. Patient required moderate assistance for verbal / tactile cueing. Patient was able to get in and out of the tub during second attempt. Patient currently is deemed unsafe to complete tub transfer independently and requires assistance at all times. Afterwards, patient was brought back to his room and completed sit to stand transfer from wheelchair requiring verbal cueing for hand placement and supervision x1 for safety. Patient ambulated 15 feet using 2-wheeled walker and CGAx1 into the restroom and completed sit to stand transfer to commode with CGAx1 with verbal cueing for sequencing. Patient then ambulated 13 feet using a 2-wheeled walker from the commode to recliner and safely descended into recliner with supervision x1 assistance for safety. Patient was left sitting in recliner with call light at the end of session.) Physical Therapy Problem List: Detail (1. Assistance with transfers 2. Decreased ability to complete prolonged activity 3. Increased tone of LE's and trunk 4. Decreased LE and trunk ROM due to increased tone 5. Numerous gait deviations increasing fall risk 6. Decreased gait speed impacting fall risk) Physical Therapy Goals: 1. Patient will ambulate 75-100 feet with appropriate assistive device independently. (Partially met, patient met distance requirement but is CGAx1 for safety). 2. Evaluate bed mobility. (met). 3. Patient will ambulate 3 steps on stairs with use of one railing with supervision for safety. 4. Patient will independently complete transfer without verbal cueing. 5. Patient will improve score on Mini BESTest by 5 points to demonstrate a significant change of improvement due to MCID for Parkinson's Disease for the outcome measure. 6. Patient will stand on one leg for greater than 20 seconds without support or assistance to aid in strength and increased balance for function. Physical Therapy Plan: PT 1-2 times a day for gait and transfer training, neuromuscular re-education, balance exercises, bed mobility, tone reduction techniques, manual therapy techniques to improve trunk mobility.
[2019-03-11] MEDS: TERAZOSIN HCL 1 MG CAPSULE PO SCH (21:24)
[2019-03-11] MEDS: GABAPENTIN 100 MG CAPSULE PO SCH (21:24)
[2019-03-12] MEDS: CARBIDOPA PO SCH ×3 (06:13→21:19)
[2019-03-12] MEDS: LEVODOPA PO SCH ×3 (06:13→21:19)
[2019-03-12] MEDS: ATENOLOL 50 MG TABLET PO SCH ×2 (09:55→21:18)
[2019-03-12] MEDS: ENOXAPARIN 40 MG/0.4 ML SYR SQ SCH (09:55)
[2019-03-12] MEDS: DULOXETINE HCL 30 MG CAPSULE.DR PO SCH (09:55)
[2019-03-12 18:50] LABS: URINE APPEARANCE CLEAR; URINE BILIRUBIN NEGATIVE (NEGATIVE); URINE BLOOD NEGATIVE (NEGATIVE); URINE COLOR YELLOW; URINE GLUCOSE (UA) NEGATIVE (NEGATIVE); URINE KETONE NEGATIVE (NEGATIVE); URINE LEUKOCYTE ESTERASE NEGATIVE (NEGATIVE); URINE NITRITE NEGATIVE (NEGATIVE); URINE PROTEIN NEGATIVE (NEGATIVE); URINE UROBILINOGEN 0.2 E.U./dL (0.20 - 1.00)
[2019-03-12] MEDS: GABAPENTIN 100 MG CAPSULE PO SCH (21:18)
[2019-03-12] MEDS: TERAZOSIN HCL 1 MG CAPSULE PO SCH (21:18)
[2019-03-13] MEDS: CARBIDOPA PO SCH ×3 (06:09→21:34)
[2019-03-13] MEDS: LEVODOPA PO SCH ×3 (06:09→21:34)
[2019-03-13] MEDS: ATENOLOL 50 MG TABLET PO SCH ×2 (09:13→21:34)
[2019-03-13] MEDS: DULOXETINE HCL 30 MG CAPSULE.DR PO SCH (09:14)
[2019-03-13] MEDS: ENOXAPARIN 40 MG/0.4 ML SYR SQ SCH (09:14)
[2019-03-13] MEDS: GABAPENTIN 100 MG CAPSULE PO SCH (21:34)
[2019-03-13] MEDS: TERAZOSIN HCL 1 MG CAPSULE PO SCH (21:34)
[2019-03-14] MEDS: LEVODOPA PO SCH ×3 (06:11→21:13)
[2019-03-14] MEDS: CARBIDOPA PO SCH ×3 (06:11→21:13)
[2019-03-14] MEDS: ATENOLOL 50 MG TABLET PO SCH ×2 (10:09→21:10)
[2019-03-14] MEDS: ENOXAPARIN 40 MG/0.4 ML SYR SQ SCH (10:10)
[2019-03-14] MEDS: DULOXETINE HCL 30 MG CAPSULE.DR PO SCH (10:10)
--- NOTE | 2019-03-14 13:54 | Physical Therapy Tx Note ---
Physical Therapy Tx Note - Treatment Note Tolerated: Good Total Time Spent With Patient: 35 Physical Therapy Tx Note: Detail (Patient began therapy session sitting in recliner. Patient completed sit to stand transfer from recliner with 2-wheeled walker for support with minimal assistance x1 with 2 attempts. Patient then ambulated a total of 225 feet with 2-wheeled walker with SBAx1 with verbal cueing for increased stride length with wheelchair follow for fatigue. Patient was then brought to the rehab department and was assessed with the Mini BESTest of Dynamic Balance. Patient was not assessed in the sections requiring patient's eyes to be closed on a foam surface, eyes closed on an incline, or cognitive TUG due to safety concerns. Patient overall scored a 13/28, which is a significant improvement from his initial test score of 5/28. Due to the clinical significant difference of the test being an improvement of 5 points, the patient has shown a significant progress in his balance. However, he is still at a high risk for falls, therefore, further physical therapy upon discharge is recommended. Patient after the test was returned to his room. Patient completed a sit to stand transfer with verbal cueing for hand placement with minimal assistance x1 with 2-wheeled walker for support. Patient completed standing pivot transfer to the right into his recliner with CGAx1 with verbal / tactile cueing for sequencing and hand placement using a 2-wheeled walker for support. Patient was left sitting in recliner with call light next to him.) Physical Therapy Problem List: Detail (1. Assistance with transfers 2. Decreased ability to complete prolonged activity 3. Increased tone of LE's and trunk 4. Decreased LE and trunk ROM due to increased tone 5. Numerous gait deviations increasing fall risk 6. Decreased gait speed impacting fall risk) Physical Therapy Goals: 1. Patient will ambulate 75-100 feet with appropriate assistive device independently. (Partially met, patient met distance requirement but is CGAx1 for safety). 2. Evaluate bed mobility. (met). 3. Patient will ambulate 3 steps on stairs with use of one railing with supervision for safety. 4. Patient will independently complete transfer without verbal cueing. 5. Patient will improve score on Mini BESTest by 5 points to demonstrate a significant change of improvement due to MCID for Parkinson's Disease for the outcome measure. 6. Patient will stand on one leg for greater than 20 seconds without support or assistance to aid in strength and increased balance for function. Physical Therapy Plan: PT 1-2 times a day for gait and transfer training, neuromuscular re-education, balance exercises, bed mobility, tone reduction techniques, manual therapy techniques to improve trunk mobility.
[2019-03-14] MEDS: GABAPENTIN 100 MG CAPSULE PO SCH (21:10)
[2019-03-14] MEDS: TERAZOSIN HCL 1 MG CAPSULE PO SCH (21:10)
[2019-03-14] MEDS: ACETAMINOPHEN 500 MG TABLET PO PRN (23:11)
[2019-03-15] MEDS: CARBIDOPA PO SCH ×2 (08:02→14:35)
[2019-03-15] MEDS: LEVODOPA PO SCH ×2 (08:02→14:35)
--- NOTE | 2019-03-15 10:04 | Occupational Therapy Tx Note ---
Occupational Therapy Tx Note - Treatment Note Tolerated: Good Total Time Spent With Patient: 35 (ADL) Occupational Therapy Treatment Note: Detail (S: Pt is nervous about going home but he is ready. O: Sit to stand and amb to toilet with 2 wheeled walker, pt able to pull pants and briefs down with verbal cues. Pt toileted with verbal cues and CG assist for wiping due to slow initiation. Pt sit to stand with verbal cues and able to pull pants up with extra time. Pt amb to sink and completed hand washing with SBA. Pt amb 15 feet to wheelchair with 2 wheeled walker and SBA. Pt transported to rehab dept via wheelchair. Pt educated re: tub transfer using extended tub seat. He required min verbal cues for technique but was able to complete transfer safely. Pt left with PT in rehab gym. A: Pt requires verbal cues for self cares at times due to decreased initiation. Verbal cues for tub transfer using extended tub seat. Recommend assistance with showering until pt is safe with his tub set up.) Occupational Therapy Problem List: Detail (1. Decreased Ind with total body dressing. 2. Decreased Ind with showering. 3. Decreased raiza UE coordination due to tremors. 4. Decreased endurance needed for safe and Ind ADLs/IADLs.) Occupational Therapy Goals: 1. Pt will be Ind with total body dressing. 2. Pt will be safe and Ind with total body showering in sitting and standing. 3. Pt will demonstrate improved UE coordination to allow Ind with ADLs/IADLs. 4. Pt will demonstrate improved endurance to allow Ind with showering/dressing tasks. Prognosis: Good Occupational Therapy Plan: OT 2-4 times per week to address UE function, overall endurance, self cares and IADLs to allow safe and Ind return home.
[2019-03-15] MEDS: DULOXETINE HCL 30 MG CAPSULE.DR PO SCH (10:16)
[2019-03-15] MEDS: ENOXAPARIN 40 MG/0.4 ML SYR SQ SCH (10:16)
[2019-03-15] MEDS: ATENOLOL 50 MG TABLET PO SCH (10:16)
[2019-03-15] MEDS: ACETAMINOPHEN 500 MG TABLET PO PRN (10:18)
--- NOTE | 2019-03-15 10:42 | Discharge Summary ---
Providers Discharge Summary Date: 03/15/19 Date of admission: 03/01/19 16:10 Expected Date of Discharge: 03/15/19 Attending physician: SAPPHIRE ZHOU Primary care physician: Rodrick Perry Physical Exam - Vital Signs Vital Signs: Vital Signs - Last 24 Hrs Temp Pulse Resp BP Pulse Ox 03/15/19 08:00 97.9 F 72 16 156/78 97 03/14/19 20:00 97.1 F L 72 16 173/73 96 - General General Appearance: Alert, Oriented x3, Cooperative, No acute distress - Head Head exam: Normocephalic - Eye Eye exam: Normal appearance, PERRL - ENT ENT exam: Normal exam Ear exam: Normal external inspection - Respiratory Respiratory exam: Normal lung sounds bilaterally - Cardiovascular Cardiovascular Exam: Regular rate, Normal heart sounds Peripheral Pulses: 2+: Dorsalis Pedis (R), Dorsalis Pedis (L), 3+: Radial (R), Radial (L) - GI/Abdominal GI/Abdominal exam: Soft, Normal bowel sounds - Extremities Extremities exam: Normal capillary refill. negative: Pedal edema, Tenderness - Neurological Neurological exam: Abnormal gait, Alert, Other (resting tremor) - Psychiatric Psychiatric exam: Flat affect Hospitalization - Hospitalization Admission Diagnosis: deconditioning - Problem List/Discharge Diagnosis (1) Physical deconditioning Current Visit: No Status: Acute Base Code: R53.81 - OTHER MALAISE Comment: 03/15/19 -pt d/c today, still needs assistance for ambulation, using walker -home PT/OT services -pt has several family members planning on making multiple daily trips to med mgt and help with ADLs 03/10/19: - Patient improving with gait and transfer training daily. - Still requiring assistance for ambulation. (2) Parkinson disease Current Visit: No Status: Acute Base Code: G20 - PARKINSON'S DISEASE Comment: 03/15/19 -continue sinemet 50/200 QID, continue to follow with neurology -son and niece to mgt meds multiple times daily to avoid problems from over dosing with med confusion 03/10/19: - Progressing Parkinson's with progressively worsening tremors. - On Sinemet 50/200 QID. - To follow with Neurology on discharge. (3) Confusion Current Visit: No Status: Acute Base Code: R41.0 - DISORIENTATION, UNSPECIFIED Comment: 03/15/19: -Head CT: no acute changes -UA, CBC, and CMP unremarkable -Confusion likely due to overdose of Carbedopa/Levodopa -Patient's confusion has resolved. Oriented to baseline mentation (4) Hypertension Current Visit: No Status: Acute Base Code: I10 - ESSENTIAL (PRIMARY) HYPERTENSION Comment: 03/15/49 -BP improved, increased atenolol dossing, BP 156/78 this AM -pt to follow with PCP to address chronic issues 03/10/19: - BP not controlled. - Increased Atenolol to 50mg BID. Holding parameters for SBP < 120, HR < 55. (5) Overdose Current Visit: No Status: Acute Discharge Diagnosis: Encounter type: initial encounter Injury intent: accidental or unintentional Qualified Code(s): T50.901A - Poisoning by unspecified drugs, medicaments and biological substances, accidental (unintentional), initial encounter Base Code: T50.901A - POISONING BY UNSP DRUG/MEDS/BIOL SUBST, ACCIDENTAL, INIT Comment: 03/15/19: -Familiy reports that patient took 3-4 days worth of all medications on Thursday -Holding Duloxatine and Carbodopa/Levodopa until 02/28 -PT/OT working with pt, PT/OT home services (6) DNR (do not resuscitate) Current Visit: No Status: Acute Base Code: Z66 - DO NOT RESUSCITATE Comment: 03/15/19: -Patient DNR. (7) DVT prophylaxis Current Visit: No Status: Acute Base Code: Z29.9 - ENCOUNTER FOR PROPHYLACTIC MEASURES, UNSPECIFIED Comment: 03/15/19: -High risk due to age and hospitalization -Encouraged ambulation within the room -Lovenox 40mg SQ daily - Hospitalization Course Disposition: Home Health Service Hospital Course: Reyes Austin is a 78 y.o. M who admits to [facility] for PT/OT and nursing services d/t deconditioning r/t recent hospitalization for accidental overdose on routine medications. PMHx includes HTN, Parkinson's and Depression. Lives home alone but has 4 sons who assist him. PCP: Dr. Perry 03/02/19 1130 Reports that he is feeling clear minded and states that he doesn't want to feel the way he did a few days ago. States that he is getting his strength back. Has some mild pain in his lower back and shoulders, pain 6/10. Tylenol has been effective. States that bowels are moving appropriately. Denies cough, SOB or nausea. Condition at Discharge: (2) Stable Discharge Medications - Discharge Medications Prescriptions: Nystatin [Nystop] 5 gm TP ASDIR PRN #1 bottle PRN Reason: Rash Home Medications: Ambulatory Orders Atenolol [Tenormin] 25 mg PO DAILY 02/26/19 [Last Taken Unknown] Carbidopa/Levodopa/Entacapone [Carbidopa-Levodopa 200 mg-Enta] 1 each PO DAILY 02/26/19 [Last Taken Unknown] Gabapentin [Neurontin] 100 mg PO TID 02/26/19 [Last Taken Unknown] Terazosin HCl 2 mg PO DAILY 02/26/19 [Last Taken Unknown] Acetaminophen [Tylenol 500Mg Tab] 1,000 mg PO Q6H PRN tablet 03/15/19 [Last Taken Unknown] Atenolol [Tenormin] 50 mg PO BID tab 03/15/19 [Last Taken Unknown] Duloxetine HCl [Cymbalta] 30 mg PO DAILY capsule. 03/15/19 [Last Taken Unknown] Gabapentin [Neurontin] 100 mg PO QHS capsule 03/15/19 [Last Taken Unknown] Nystatin [Nystop] 5 gm TP ASDIR PRN #1 bottle 03/15/19 [Last Taken Unknown] Terazosin HCl [Hytrin] 2 mg PO QHS capsule 03/15/19 [Last Taken Unknown] Zinc Oxide [Desitin] 10 gm TOP ASDIR PRN tube 03/15/19 [Last Taken Unknown] Discharge Plan - Discharge Instructions Activity at Discharge: As Per Physical Therapy Diet at Discharge: Advance to Usual Diet Additional Instructions: Follow handout guidelines to choose healthier frozen meals -especially less sodium, continue not adding salt to food and continue 1 Ensure or nutrition supplement equivalent daily. Quality Measures - Quality Measures Quality Measures: Advance Directives, Documentation of Current Medications in Medical Record, Elder Maltreatment Screen and Follow-Up Plan, Screening for High Blood Pressure and F/U Documented - Current Medications Quality Measure: Measure #130: Documentation of Current Medications Documentation of Current Medications: <Current Medications Documented/Reviewed> [G9153] - Blood Pressure Screening Quality Measure: Screening for High Blood Pressure and Follow-Up Documented Does Patient Have Any of the Following: Active Dx of HTN Blood Pressure Classification: Hypertensive Reading Systolic Measurement: 150 Diastolic Measurement: 73 Screening for High Blood Pressure: Patient Exclusion, Hx of HTN [G9744] - Advance Directives Quality Measure: Measure #47: Care Plan Advance Directives Established: No Advance Directives Information Provided To Patient: No Advance Directives on File: No Living Will: Yes Power of Edge Sander: No Advance Care Planning: <Care Plan/Decision Maker Documented; Discussed & Documented> [4473F] - Elder Abuse Suspicion Index Screening: Elder Abuse Suspicion Index Screening Rely on people for bathing, dressing, shopping, banking, etc: No Prevented from getting food, clothes, medication, etc: No Made to feel shamed or threatened by someone: No Forced to sign papers or use money against will: No Feel afraid, touched in ways not wanted or hurt physically: No Poor eye contact, withdrawn, malnourished, cuts or bruises: No Screening Result: Negative result EASI Reference Information: Tali BARKLEY, Radha C, Elis D, Gabe Solorio.Development and validation of a tool to assist physicians identification of elder abuse: The Elder Abuse Suspicion Index (EASI ). Journal of Elder Abuse and Neglect, 2008; 20 (3): 276-300. - Elder Maltreatment Screen Quality Measures: Elder Maltreatment Screen and Follow-Up Plan Elder Maltreatment Screen: <Negative, No Follow-Up Plan Required> [G8734]
--- NOTE | 2019-03-15 11:08 | Rehab Discharge Summary ---
Patient Information - Patient Information Diagnosis: deconditioning due to parkinsons Ordered Treatment: PT Evaluate and Treat Surgery: No History: Detail (Patient presented in ED on 02/26/2019 due to increased confusion and hallucinations. Patient's son discovered patient had taken 3 extra days of medications.) Past Medical/Surgical Hx: PAST MEDICAL/SURGICAL HISTORY Past Surgical History bilat hernia repair, heart cath (), colonoscopy PMH - Respiratory Hx Respiratory Disorders Yes Hx Sleep Apnea Yes Hx of CPAP No: has but does not use PMH - Cardiovascular Hx Cardiovascular Disorders Yes Hx Cardiac Catheterization Yes: 1969 Hx Hypertension Yes PMH - Neuro Hx Neurological Disorders Yes Hx Parkinson's Disease Yes: dx'd 2013 PMH - GI Hx Gastrointestinal Disorders Yes Hx Ulcer Yes PMH - Hx Genitourinary Disorders Yes Hx Kidney Stones Yes PMH - Endocrine Hx Endocrine Disorders No Hx Diabetes No Hx Thyroid Disease No PMH - Musculoskeletal Hx Musculoskeletal Disorders Yes Hx Arthritis Yes PMH - Psych Hx Psychiatric Problems Yes Hx Depression Yes PMH - Hematology/Oncology Hx Hematology/Oncology No Disorders Premorbid Status: Detail (Pt lives alone in a 1 story house, no basement. He has 2 steps with 1 railing at the entrance. he has a tub/shower combination, no grab bar. He has a tub bench but he typically stands to shower. He has a standard height toilet, no grab bar. He was Ind with all self cares, home mgmt, meal prep and laundry tasks. He has a 2 wheeled walker but reports he was ambulating without any assistive device prior to admission.) Social History: Detail (Pt has a supportive son.) Precautions: [place], Fall - Time With Patient Total Time Spent With Patient (Min): 30 Subjective Information - Subjective Information Per Patient (Patient reports that he is in no pain today. Patient did report that he was slightly nervous about returning home, but could not report anything that he wanted to work on prior to discharge.) Objective Data - Mental Status Patient Orientation: Person (Patient was slightly confused throughout treatment session. During ambulation outside, patient saw trucks and reported that his sons were there when his sons were not present at the hospital. Patient demonstrated increased confusion on placement during exercises and sequencing, but this may be due to the patient having increased anxiety. Patient's Parkinson's diagnosis or medications may have also played a roll in the inc reased confusion.) - Visual Perception Deficit (During exercises involving patient stepping over objects, therapist asked patient if he could see the object clear enough. Patient reports that he can but it is slightly blurry. Patient reports that he needs new glasses, therefore, there may be a possible visual deficit impacting patient's ability to independently perform tasks.) - ROM Other (Patient's range of motion was assessed functionally with exercises, sit to stand transfers, bed mobility, and ambulation. Patient's range of motion in upper and lower extremities are within functional limits for patient to complete activities of daily living.) - Strength/Tone Other (Patient's strength was assessed functionally with exercises, sit to stand transfers, bed mobility, and ambulation. Patient's strength is found to be within functional limits for patient to be able to complete activities of daily living.) - Coordination Deficit (Patient's coordination in upper extremities was assessed with standing arm swing exercises and was found to require maximal verbal cueing. Patient consistently shows issues with placement of extremities and fully executing exercises after demonstration. Patient requires maximal verbal / tactile cueing throughout exercise treatment.) - Bed Mobility Independent (Patient was assessed completing transfer from sitting to supine in bed and back, patient requires supervision assistance x1 with verbal / tactile cueing for sequencing.) - Transfers Dependent (Patient requires moderate assistance x1 for sit to stands at the initial portion of the session. However, once patient practices sit to stand exercise, patient requires supervision assistance x1 for safety. Patient was also assessed for tub transfer, but required maximal verbal / tactile cueing for breathing, hand/foot placement, and sequencing. Patient's anxiety increases during tub transfer and freezing episodes have occurred 2x during tub transfers. Therefore, it is recommended that patient require assistance with showers at all times.) - Balance Balance Sitting: Good (Patient's sitting balance is within functional limits. Patient does not present with sway or unsteadiness in sitting.) Balance Standing: Fair (During MiniBESTest assessed for the second time 03/14/2019, patient had decreased standing balance reaction laterally and posteriorly. Patient also has decreased standing balance when stepping over objects with consistent freezing episodes and demonstrates difficulty following simple commands.) - Gait Detail (Patient ambulated total of 160 feet using 2-wheeled walker with supervision x1 with wheelchair follow outside. Patient ambulated on sidewalks and had small distractions such as birds chirping and the wind blowing, but patient was able to stay on task and did not require redirection. Patient has been previously assessed on stairs using 2 6-inch steps and 3 4-inch steps with one hand railing with CGAx2 for safety.) Therapy Assessment - Therapy Assessment Detail (Patient reported today that he was nervous about his discharge home, which may have impacted his mental state during therapy today. Patient was brought to therapy session by occupational therapist in the rehab department. Exercises consisted of 10 sit to stand exercises in the parallel bars, with CGAx1 for safety. Patient required the use of bilateral hand rails for exercise. Afterwards, patient completed standing arm swing exercise in the parallel bars. Patient was able to complete 8 repetitions on right extremity with left hand support with CGAx1 with moderate verbal / tactile cueing for sequencing and placement. Patient demonstrated increased confusion when completing exercise for left extremity and had freezing episode for about 30 seconds. Patient required maximal verbal cueing to sit back into the wheelchair due to patient being disoriented on sequencing and placement. Afterwards, patient then was brought outside to assess ambulation with minimal distractions. Patient ambulated total of 160 feet with 2-wheeled walker with supervision assistance x1 on the sidewalks. Patient showed the ability to follow simple commands outside with minimal distractions. Patient was then brought back to his room upon completion of ambulation and completed sit to stand transfer with minimal assistance x1 with 2-wheeled walker for support. Afterwards, patient completed standing pivot transfer to the right into his recliner with CGAx1 for safety and 2-wheeled walker for support. Overall, patient seemed confused and disoriented today. Patient required moderate to maximal verbal cueing for sequencing and foot/hand placement for exercises and transfers. Patient has been assessed previously with ascending and descending 2 6-inch steps and 3 4-inch steps with one railing to help prepare patient for discharge home. Patient required CGAx2 for safety, but required minimal cueing for hand/foot placement and sequencing of task. Patient has demonstrated the ability to ambulate on different surfaces, through doorways, and with minimal distractions present, using a 2-wheeled walker with supervision assistance. Patient has shown that he requires supervision assistance with sit to stand transfers and bed mobility. Patient has been assessed completing tub transfers and demonstrates increased anxiety during transfer with freezing episodes. Patient requires consistent verbal / tactile cueing for breathing, sequencing, and hand/foot placement. It is recommended that patient requires assistance with tub transfers at all times. Patient is currently being discharged from subacute physical therapy due to meeting all subacute rehab goals. Patient is recommended to continue home physical therapy to further aide in progression of independence in performing ADL's.) Problem List - Problem List Physical Therapy Problem List: Detail (1. Assistance with transfers 2. Decreased ability to complete prolonged activity 3. Increased tone of LE's and trunk 4. Decreased LE and trunk ROM due to increased tone 5. Numerous gait deviations increasing fall risk 6. Decreased gait speed impacting fall risk) Occupational Therapy Problem List: Detail (1. Decreased Ind with total body dressing. 2. Decreased Ind with showering. 3. Decreased raiza UE coordination due to tremors. 4. Decreased endurance needed for safe and Ind ADLs/IADLs.) Goals - Goals Physical Therapy Goals: 1. Patient will ambulate 75-100 feet with appropriate assistive device independently.(met / supervision assistance). 2. Evaluate bed mobility. (met). 3. Patient will ambulate 3 steps on stairs with use of one railing with supervision for safety. (met). 4. Patient will independently complete transfer without verbal cueing. (met). 5. Patient will improve score on Mini BESTest by 5 points to demonstrate a significant change of improvement due to MCID for Parkinson's Disease for the outcome measure. (met). 6. Patient will stand on one leg for greater than 20 seconds without support or assistance to aid in strength and increased balance for function. (met) Occupational Therapy Goals: 1. Pt will be Ind with total body dressing. 2. Pt will be safe and Ind with total body showering in sitting and standing. 3. Pt will demonstrate improved UE coordination to allow Ind with ADLs/IADLs. 4. Pt will demonstrate improved endurance to allow Ind with showering/dressing tasks. Plan - Plan Physical Therapy Plan: Patient is discharged from subacute physical therapy rehab due to meeting all goals. Patient is recommended to continue with home physical therapy. Occupational Therapy Plan: OT 2-4 times per week to address UE function, overall endurance, self cares and IADLs to allow safe and Ind return home.
--- NOTE | 2019-03-16 09:27 | Rehab Discharge Summary ---
Patient Information - Patient Information Diagnosis: deconditioning due to parkinsons Ordered Treatment: OT Evaluate and Treat Surgery: No History: Detail (Patient presented in ED on 02/26/2019 due to increased confusion and hallucinations. Patient's son discovered patient had taken 3 extra days of medications.) Past Medical/Surgical Hx: PAST MEDICAL/SURGICAL HISTORY Past Surgical History bilat hernia repair, heart cath (), colonoscopy PMH - Respiratory Hx Respiratory Disorders Yes Hx Sleep Apnea Yes Hx of CPAP No: has but does not use PMH - Cardiovascular Hx Cardiovascular Disorders Yes Hx Cardiac Catheterization Yes: 1969 Hx Hypertension Yes PMH - Neuro Hx Neurological Disorders Yes Hx Parkinson's Disease Yes: dx'd 2013 PMH - GI Hx Gastrointestinal Disorders Yes Hx Ulcer Yes PMH - Hx Genitourinary Disorders Yes Hx Kidney Stones Yes PMH - Endocrine Hx Endocrine Disorders No Hx Diabetes No Hx Thyroid Disease No PMH - Musculoskeletal Hx Musculoskeletal Disorders Yes Hx Arthritis Yes PMH - Psych Hx Psychiatric Problems Yes Hx Depression Yes PMH - Hematology/Oncology Hx Hematology/Oncology No Disorders Premorbid Status: Detail (Pt lives alone in a 1 story house, no basement. He has 2 steps with 1 railing at the entrance. he has a tub/shower combination, no grab bar. He has a tub bench but he typically stands to shower. He has a standard height toilet, no grab bar. He was Ind with all self cares, home mgmt, meal prep and laundry tasks. He has a 2 wheeled walker but reports he was ambulating without any assistive device prior to admission.) Social History: Detail (Pt has a supportive son.) Precautions: [place], Fall Objective Data - Pain Pain Present: No - Mental Status Patient Orientation: Oriented x3 - Visual Perception Appears within normal limits for therapeutic activities (Pt wears glasses at all times.) - ROM Within normal limits (Vivek UE AROM WNL) - Strength/Tone Not within normal limits (Vivek UE strength 4+/5, pt continues with tremors which are significant at times especially when he is fatigued.) - Coordination Appears within normal limits for therapeutic activities (Pt is Ind with coordination tasks required for self cares, he does display significant tremors at times.) - Bed Mobility Independent (Ind with supine to sit.) - Transfers Independent (Pt is Ind with sit to stand from various surfaces although he requires verbal cues at times.) - Balance Balance Sitting: Good Balance Standing: Fair - Sensation Intact - Gait Detail (Pt ambulating in room with 2 wheeled walker and SBA) - ADL's/IADL's Detail (Pt requires min assist and verbal cues for showering and dressing tasks unless he is significantly fatigued at which time he requires more assist due to tremors.) Therapy Assessment - Therapy Assessment Detail (Pt has demonstrated improved endurance and Ind with self cares and functional mobility.) Problem List - Problem List Physical Therapy Problem List: Detail (1. Assistance with transfers 2. Decreased ability to complete prolonged activity 3. Increased tone of LE's and trunk 4. Decreased LE and trunk ROM due to increased tone 5. Numerous gait deviations increasing fall risk 6. Decreased gait speed impacting fall risk) Occupational Therapy Problem List: Detail (1. Decreased Ind with total body dressing. 2. Decreased Ind with showering. 3. Decreased vivek UE coordination due to tremors. 4. Decreased endurance needed for safe and Ind ADLs/IADLs.) Goals - Goals Physical Therapy Goals: 1. Patient will ambulate 75-100 feet with appropriate assistive device independently.(met / supervision assistance). 2. Evaluate bed mobility. (met). 3. Patient will ambulate 3 steps on stairs with use of one railing with supervision for safety. (met). 4. Patient will independently complete transfer without verbal cueing. (met). 5. Patient will improve score on Mini BESTest by 5 points to demonstrate a significant change of improvement due to MCID for Parkinson's Disease for the outcome measure. (met). 6. Patient will stand on one leg for greater than 20 seconds without support or assistance to aid in strength and increased balance for function. (met) Occupational Therapy Goals: Goals partially met: 1. Pt will be Ind with total body dressing. 2. Pt will be safe and Ind with total body showering in sitting and standing. 3. Pt will demonstrate improved UE coordination to allow Ind with ADLs/IADLs. 4. Pt will demonstrate improved endurance to allow Ind with showering/dressing tasks. Prognosis - Prognosis Good Plan - Plan Physical Therapy Plan: Patient is discharged from subacute physical therapy rehab due to meeting all goals. Patient is recommended to continue with home physical therapy. Occupational Therapy Plan: Pt has discharged home with home therapy.
== END 2019-03-15 16:45 | disposition home health service (06) | DRG 918 ==
LOC: MEDSURG 03-01 16:10
PROVIDERS: ADMIT Internal Medicine; ATTEND Internal Medicine
DX: T50.901A Poisoning by unspecified drugs, medicaments and biological substances, accidental (unintentional), initial encounter (principal); I10 Essential (primary) hypertension; G20 Parkinson's disease; R41.0 Disorientation, unspecified; F32.9 Major depressive disorder, single episode, unspecified; Z98.61 Coronary angioplasty status; Z87.891 Personal history of nicotine dependence; Z66 Do not resuscitate
CPT/HCPCS: 81003; 90670; 97110; 97112; 97530; 97535; 99306; 99309; 99316; J1650